=== PATIENT | female | born 1995 | race Caucasian/White ===

== ENCOUNTER 2020-03-12 14:22 | Outpatient (RCR) | payer OTHER, SELFPAY ==
--- NOTE | ~2020-03-12 | US_ITS ---
EXAMINATION: US OB limited w BPP DATE: 03/12/2020 15:31 INDICATION: Biophysical profile and cervical length assessment during third trimester TECHNIQUE: Real-time pelvic ultrasound was performed. The interpreting radiologist was not present fo r the study. COMPARISON: None. FINDINGS: There is a single living fetus in vertex presentation. The placenta is anterior. heart rate is 143 beats per minute (bpm). The cervical length is 3.4 cm. Biophysical profile performed by the technologist: breathing (30 sec sustained breathing in 30 minutes): 2 out of 2 movement (3 gross body movements in 30 minutes): 2 out of 2 tone (one episode of aocpbzt-gmpizizud-fgpsewm limb movement): 2 out of 2 Amniotic fluid pocket (2 cm): 2 out of 2 Total score: 8 out of 8 IMPRESSION: 1. Single living fetus in vertex presentation. 2. Biophysical profile 8 out of 8. 3. Cervical length of 3.4 cm. Reviewed, dictated and finalized at location A. D TECHNICIAN SUPERVISOR
[2020-03-12 15:11] LABS: Add Urine Microscopic? NO; Appearance Urine Clear (Clear); Bilirubin Urine Negative (Negative); Blood Urine Negative (Negative); Color Urine Colorless (Yellow); Glucose Urine UA Negative (Negative); Ketones Urine Negative (Negative); Leukocyte Esterase Ur Negative LEU/UL (Negative); Nitrate Urine Negative (Negative); Protein Urine Negative (Negative); Specific Grav Ur 1.005 (1.001-1.035); Urobilinogen Urine Negative mg/dL (<2.0)
[2020-03-12 15:47] VITALS: BP 109/64; PULSE 99
== END 2020-05-27 07:58 | disposition home or self-care (01) ==
LOC: ANHOBOP 14:22
PROVIDERS: Visit Provider Obstetrics & Gynecology
DX: O99.891 Other specified diseases and conditions complicating pregnancy (principal); Z3A.29 29 weeks gestation of pregnancy
CPT/HCPCS: 59025; 76815; 76819; 81003

== ENCOUNTER 2020-03-26 14:46 | Observation (INO) | payer OTHER, SELFPAY ==
--- NOTE | ~2020-03-26 | US_ITS ---
EXAMINATION: US OB BPP wo non-stress EXAM DATE: 03/26/2020 16:31 INDICATION: bpp hx labor. 3rd trimester. TECHNIQUE: Pelvic obstetrical transabdominal sonogram was performed by a technologist. There are mu ltiple grayscale and Doppler images available for interpretation. Comparison is made to prior examina tion from 03/12/2020. FINDINGS: There is a single fetus identified in vertex presentation with a heart rate of 159 beats pe r minute. The placenta is located in the anterior position. There is no sonographic evidence of retr oplacental hemorrhage identified. There is subjectively expected amount of amniotic fluid. BIOPHYSICAL PROFILE (performed by the technologist) breathing (30 sec sustained breathing in 30 minutes): 2 out of 2 movement (3 gross body movements in 30 minutes): 2 out of 2 tone (one episode of kehmumv-ysrelcfhp-hvevqxe limb movement): 2 out of 2 Amniotic fluid pocket (2 cm): 2 out of 2 Total score: 8 out of 8 IMPRESSION: 1. Single fetus with heart rate of 159 bpm. 2. Normal biophysical profile score of 8 out of 8. Reviewed, dictated and finalized at location B. C PROFESSOR
--- NOTE | 2020-03-26 14:46 | OBADM ---
This patient, Kavitha Bermeo, admitted to the OB room OB Post 116 for observation. Patient/family oriented to hospital policies and general routines including ID bracelet, bed and alarms, visiting hours, pain management, procedures, bathroom and other care routines, personal items, smoking policy, room service/diet, and visiting hours. Patient/Family are encouraged to report perceived risks to care and to ask questions if they do not understand what they are told or what they should do.
[2020-03-26 15:08] VITALS: BP 110/65; PULSE 107
[2020-03-26 15:15] VITALS: BP 105/55; PULSE 111
[2020-03-26 15:19] VITALS: BMI 30.2
[2020-03-26 15:30] VITALS: BP 104/61; PULSE 113
[2020-03-26] MEDS: BETAMETHASONE SOD PHOS/ACETATE 30 MG/5 ML VIAL 12 MG IM (15:35)
[2020-03-26 15:43] VITALS: BP 104/61; PULSE 107
[2020-03-26 15:45] VITALS: BP 103/53; PULSE 103
[2020-03-26 15:50] LABS: Add Urine Microscopic? YES; Appearance Urine Clear (Clear); Bacteria Urine Trace /hpf; Bilirubin Urine Negative (Negative); Blood Urine Negative (Negative); Color Urine Yellow (Yellow); Glucose Urine UA 2+ mg/dL (Negative); Ketones Urine Trace mg/dL (Negative); Leukocyte Esterase Ur 1+ LEU/UL (Negative); Mucus Urine Rare /lpf; Nitrate Urine Negative (Negative); Protein Urine 1+ mg/dL (Negative); RBC Urine 0-2 /hpf (0-2); Specific Grav Ur 1.023 (1.001-1.035); Squamous Epithelial Cell Urine Many /hpf (Few); Urobilinogen Urine Negative mg/dL (<2.0)
--- NOTE | 2020-03-26 15:55 | PC.NURSE ---
Patient taken via wheelchair to ultrasound
--- NOTE | 2020-03-26 16:34 | PC.NURSE ---
Updated Dr. León with lab results, maternal and assessments and ultrasound report. Discharge orders received.
--- NOTE | 2020-04-02 08:16 | PM.OBTRLD ---
OB - Triage/Final Diagnosis Evaluation Laboratory results: Laboratory Tests 03/26/20 15:33 Urine Color Yellow Urine Appearance Clear Urine pH 6.0 Ur Specific [place] 1.023 Urine Protein 1+ H Urine Glucose (UA) 2+ H Urine Ketones Trace Ur Blood (Man) Negative Urine Nitrate Negative Urine Bilirubin Negative Urine Urobilinogen Negative Leukocyte Esterase Rfl 1+ H Urine RBC 0-2 Urine WBC 7-9 H Ur Squamous Epith Cells Many H Urine Bacteria Trace Urine Mucus Rare Final Diagnosis (1) contractions: Code(s): O47.9 - False labor, unspecified Status: Acute
== END 2020-03-26 16:51 | disposition home or self-care (01) ==
PROVIDERS: Admitting Provider Obstetrics & Gynecology; Visit Provider Obstetrics & Gynecology
DX: O47.03 False labor before 37 completed weeks of gestation, third trimester (principal); Z3A.31 31 weeks gestation of pregnancy
CPT/HCPCS: 59025; 76819; 81001; 87086; 87088; 96372; G0378; G0379; J0702

== ENCOUNTER 2020-03-27 15:16 | Outpatient (CLI) | payer OTHER, SELFPAY ==
[2020-03-27] MEDS: BETAMETHASONE SOD PHOS/ACETATE 30 MG/5 ML VIAL 12 MG IM (15:46)
== END 2020-03-27 15:17 | disposition home or self-care (01) ==
LOC: ANHOBOP 15:22
PROVIDERS: Visit Provider Obstetrics & Gynecology
DX: O20.0 Threatened abortion (principal); Z3A.00 Weeks of gestation of pregnancy not specified
CPT/HCPCS: 96372; J0702

== ENCOUNTER 2020-03-28 15:29 | Observation (INO) | payer OTHER, SELFPAY ==
[2020-03-28] VITALS (21 sets, daily range): BP systolic 101–111; BP diastolic 51–70; PULSE 89–123; RESP 18; TEMP 36.3–36.4; O2SAT 99–100; BMI 29.4
--- NOTE | ~2020-03-28 | US_ITS ---
EXAMINATION: US OB limited DATE: 03/28/2020 17:06 INDICATION: Abdominal cramping during third trimester of . Assess cervical length. TECHNIQUE: Real-time ultrasound of the pelvis was performed using both transabdominal and transvagina l probe. The interpreting radiologist was not present for the study. COMPARISON: None. FINDINGS: There is a single living fetus in vertex presentation. The placenta is anterior and not low-lying wi th caudal margin 11 cm from the internal cervical os. Cervical length measures 3.1 cm which remains w ithin normal limits with no funneling. heart rate is 145 beats per minute (bpm). IMPRESSION: 1. Single living fetus in vertex presentation with heart rate of 145 bpm. 2. Normal cervical length of 3.1 cm. Reviewed, dictated and finalized at location A. A DIVE TRAINING INSTRUCTOR IMPRESSION: 1. Single living fetus in vertex presentation with heart rate of 145 bpm . 2. Normal cervical length of 3.1 cm.
--- NOTE | 2020-03-28 15:29 | OBADM ---
This patient, Kavitha Bermeo, admitted to the OB room OB Post 112 for observation. Patient/family oriented to hospital policies and general routines including ID bracelet, bed and alarms, visiting hours, pain management, procedures, bathroom and other care routines, personal items, smoking policy, room service/diet, and visiting hours. Patient/Family are encouraged to report perceived risks to care and to ask questions if they do not understand what they are told or what they should do.
--- NOTE | 2020-03-28 16:45 | PC.NURSE ---
Dr. León called and notified regarding pt's arrival and c/o of vaginal spotting, vaginal pressure, and abdominal cramping. Assessment findings and FHR tracing reviewed with Dr. Chavez received.
[2020-03-28] MEDS: NIFEdipine 10 MG CAPSULE PO (17:10)
--- NOTE | 2020-03-28 18:02 | PC.NURSE ---
Dr. León notified regarding ultrasound report and patient continuing to have abdominal cramping following Procardia. Orders received.
[2020-03-28] MEDS: TERBUTALINE SULFATE 1 MG/ML VIAL 0.25 MG SUB-Q (18:27)
--- NOTE | 2020-04-02 08:18 | PM.OBTRLD ---
OB - Triage/Final Diagnosis Final Diagnosis (1) contractions: Code(s): O47.9 - False labor, unspecified Status: Acute
== END 2020-03-28 20:14 | disposition home or self-care (01) ==
PROVIDERS: Admitting Provider Obstetrics & Gynecology; Visit Provider Obstetrics & Gynecology
DX: O47.03 False labor before 37 completed weeks of gestation, third trimester (principal); Z3A.31 31 weeks gestation of pregnancy
CPT/HCPCS: 76815; 96372; A9270; G0378; G0379; J3105

== ENCOUNTER 2020-05-01 13:38 | Observation (INO) | payer OTHER, SELFPAY ==
--- NOTE | ~2020-05-01 | US_ITS ---
EXAMINATION: US OB BPP wo non-stress DATE: 05/01/2020 16:28 INDICATION: Abdominal tenderness. Assess biophysical profile. Third trimester . TECHNIQUE: Real-time pelvic ultrasound was performed. The interpreting radiologist was not present fo r the study. COMPARISON: 03/28/2020 FINDINGS: There is a single living fetus in vertex presentation. The placenta is anterior. heart rate is 125 beats per minute (bpm). Biophysical profile performed by the technologist: breathing (30 sec sustained breathing in 30 minutes): 2 out of 2 movement (3 gross body movements in 30 minutes): 2 out of 2 tone (one episode of wmnlski-ogkcxiguk-hvfsuvg limb movement): 2 out of 2 Amniotic fluid pocket (2 cm): 2 out of 2 Total score: 8 out of 8 IMPRESSION: 1. Single living fetus in vertex presentation with heart rate of 125 bpm. 2. Biophysical profile 8 out of 8. Reviewed, dictated and finalized at location A. UAL OFFICE ASSISTANT
[2020-05-01 13:55] VITALS: BMI 31.7
[2020-05-01 15:01] VITALS: BP 106/65; PULSE 102
[2020-05-01 15:16] VITALS: BP 111/67; PULSE 99
[2020-05-01 15:41] LABS: Basophils Percent Auto 0.2 % (0.2-1.2); Eosinophils Percent Auto 0.4 % (0-4.4); Hemoglobin 10.3 g/dL (12.0-15.0); Immature Granulocyte Absolute 0.04 K/mm3 (0.00-0.031); Immature Granulocyte Percent A 0.4 % (0-0.5); Lymphocytes Absolute Auto 1.46 K/mm3 (0.9-3.2); Lymphocytes Percent Auto 14.4 % (18.3-44.2); Mean Corpuscular HGB Conc 32.2 g/dl (32-36); Mean Corpuscular Hemoglobin 29.3 pg (26-34); Mean Corpuscular Volume 91.2 fl (80-100); Mean Platelet Volume 10.4 fl (7.4-10.4); Monocytes Absolute Auto 0.6 K/mm3 (0.1-0.6); Monocytes Percent Auto 5.6 % (2.6-8.5); Platelet Count Result 187 k/mm3 (150-375); Red Blood Count 3.51 M/mm3 (4.2-5.4); Red Cell Distribution Width 14.6 % (11.5-14.5); White Blood Count 10.2 K/mm3 (4.5-10.0)
--- NOTE | 2020-05-01 16:48 | P.PNOB_ITS ---
OB - Triage/Final Diagnosis Visit Information Comments/Additional reasons for admission: I have assessed the risk for this patient, Kavitha Bermeo, and determined that she would benefit from observation care. Evaluation Laboratory results: Laboratory Tests 05/01/20 15:35 WBC 10.2 H RBC 3.51 L Hgb 10.3 L Hct 32.0 L MCV 91.2 MCH 29.3 MCHC 32.2 RDW 14.6 H Plt Count 187 MPV 10.4 Immature Gran % (Auto) 0.4 Neut % (Auto) 79.0 H Lymph % (Auto) 14.4 L [place] % (Auto) 5.6 Eos % (Auto) 0.4 Baso % (Auto) 0.2 Lymph # (Auto) 1.46 [place] # (Auto) 0.6 Eos # (Auto) 0.0 Baso # (Auto) 0.0 Abs Immat Gran (auto) 0.04 H Absolute Neuts (auto) 8.0 H Absolute Nucleated RBC 0.0 Nucleated RBC % 0.0 Vital signs: Vital Signs - 24 hr 05/01/20 15:01 05/01/20 15:16 Pulse Rate 102 H 99 Blood Pressure 106/65 111/67 Final Diagnosis (1) False labor: Code(s): O47.9 - False labor, unspecified Status: Acute
== END 2020-05-01 16:40 | disposition home or self-care (01) ==
PROVIDERS: Admitting Provider Obstetrics & Gynecology; Visit Provider Obstetrics & Gynecology
DX: O47.9 False labor, unspecified (principal); Z3A.00 Weeks of gestation of pregnancy not specified
CPT/HCPCS: 36415; 76819; 84112; 85025; G0378; G0379

== ENCOUNTER 2020-05-05 19:09 | Observation (INO) | payer OTHER, SELFPAY ==
[2020-05-05 19:15] VITALS: BMI 31.7
--- NOTE | 2020-05-05 23:43 | OBADM ---
This patient, Kavitha Bermeo, admitted to the OB room Labor/Delivery/Recovery 106 for observation. Patient/family oriented to hospital policies and general routines including ID bracelet, bed and alarms, visiting hours, pain management, procedures, bathroom and other care routines, personal items, smoking policy, room service/diet, and visiting hours. Patient/Family are encouraged to report perceived risks to care and to ask questions if they do not understand what they are told or what they should do.
--- NOTE | 2020-05-08 17:55 | PM.OBTRLD ---
OB - Triage/Final Diagnosis Visit Information Comments/Additional reasons for admission: I have assessed the risk for this patient, Kavitha Bermeo, and determined that she would benefit from observation care. Final Diagnosis (1) contractions: Code(s): O47.9 - False labor, unspecified Status: Acute
== END 2020-05-05 23:52 | disposition home or self-care (01) ==
PROVIDERS: Admitting Provider Obstetrics & Gynecology; Visit Provider Obstetrics & Gynecology
DX: O47.03 False labor before 37 completed weeks of gestation, third trimester (principal); Z3A.36 36 weeks gestation of pregnancy
CPT/HCPCS: G0378; G0379

== ENCOUNTER 2020-05-08 13:05 | Inpatient (IN) | payer OTHER, SELFPAY ==
[2020-05-08] VITALS (99 sets, daily range): BP systolic 87–119; BP diastolic 47–87; PULSE 76–137; RESP 18; TEMP 36.3–37; O2SAT 99–100
[2020-05-08 13:49] LABS: Basophils Percent Auto 0.1 % (0.2-1.2); Eosinophils Percent Auto 0.1 % (0-4.4); Hematocrit 34.2 % (37.0-47.0); Immature Granulocyte Absolute 0.05 K/mm3 (0.00-0.031); Immature Granulocyte Percent A 0.5 % (0-0.5); Lymphocytes Absolute Auto 1.21 K/mm3 (0.9-3.2); Mean Corpuscular HGB Conc 32.2 g/dl (32-36); Mean Corpuscular Hemoglobin 29.1 pg (26-34); Mean Corpuscular Volume 90.5 fl (80-100); Mean Platelet Volume 10.8 fl (7.4-10.4); Monocytes Absolute Auto 0.4 K/mm3 (0.1-0.6); Monocytes Percent Auto 3.4 % (2.6-8.5); Neutrophils Absolute Auto 9.4 K/mm3 (1.3-6.7); Neutrophils Percent Auto 84.9 % (45.5-73.1); Platelet Count Result 197 k/mm3 (150-375); Red Blood Count 3.78 M/mm3 (4.2-5.4); Red Cell Distribution Width 14.9 % (11.5-14.5)
[2020-05-08] MEDS: LACTATED RINGERS 1,000 ML 125 ML IV CONT ×3 (13:51→16:12)
--- NOTE | 2020-05-08 13:55 | LDADM ---
This patient, Kavitha Bermeo, was admitted to Labor/Delivery/Recovery 104 on 05/08/20 at 13:05. Plans for labor, pain management and were discussed with patient. Patient/family oriented to hospital policies and general routines including ID bracelet, bed and alarms, visiting hours, pain management, procedures, bathroom and other care routines, personal items, smoking policy, room service/diet and guest tray routines, security routines, and visiting hours. Patient/Family are encouraged to report perceived risks to care and to ask questions if they do not understand what they are told or what they should do. See OBIX for further documentation.
--- NOTE | 2020-05-08 14:59 | WPDANESEPPF ---
Anes - Initial Pre Proc Eval Procedure: labor epidural Date/Time: 05/08/20 14:59 Surgeon: Stacey León MD Pre Op Diagnosis: labor pain Pre Op Diagnosis: Induction of Labor Patient Data Age: 24 Gender: F Height: Weight: Last Vital Signs Pulse 104 H 05/08/20 14:58 BP 95/62 L 05/08/20 14:58 Pulse Ox 100 05/08/20 14:54 Allergies Allergy/AdvReac Type Severity Reaction Status Date / Time pecan nut Allergy Difficulty Verified 03/28/20 17:55 Breathing Penicillins Allergy Dyspnea / Verified 03/28/20 16:26 SOB vancomycin Allergy Itching Verified 03/28/20 16:26 Home Medications Medication Instructions Recorded Confirmed Type No Home Medications 05/08/20 05/08/20 History Laboratory Tests 05/08/20 05/08/20 13:39 13:39 WBC 11.0 K/mm3 H K/mm3 (4.5-10.0) RBC 3.78 M/mm3 L M/mm3 (4.2-5.4) Hgb 11.0 g/dL L g/dL (12.0-15.0) Hct 34.2 % L % (37.0-47.0) MCV 90.5 fl fl (80-100) MCH 29.1 pg pg (26-34) MCHC 32.2 g/dl g/dl (32-36) RDW 14.9 % H % (11.5-14.5) Plt Count 197 k/mm3 k/mm3 (150-375) MPV 10.8 fl H fl (7.4-10.4) Immature Gran % (Auto) 0.5 % % (0-0.5) Neut % (Auto) 84.9 % H % (45.5-73.1) Lymph % (Auto) 11.0 % L % (18.3-44.2) [place] % (Auto) 3.4 % % (2.6-8.5) Eos % (Auto) 0.1 % % (0-4.4) Baso % (Auto) 0.1 % L % (0.2-1.2) Lymph # (Auto) 1.21 K/mm3 K/mm3 (0.9-3.2) [place] # (Auto) 0.4 K/mm3 K/mm3 (0.1-0.6) Eos # (Auto) 0.0 K/mm3 K/mm3 (0-0.3) Baso # (Auto) 0.0 K/mm3 K/mm3 (0.0-0.1) Abs Immat Gran (auto) 0.05 K/mm3 H K/mm3 (0.00-0.031) Absolute Neuts (auto) 9.4 K/mm3 H K/mm3 (1.3-6.7) Absolute Nucleated RBC 0.0 K/mm3 K/mm3 (0.0-0.012) Nucleated RBC % 0.0 % % (0.0-0.2) RPR Pending Patient hx anesthesia problems: none Family hx anesthesia problems: none PMFSH Past Medical History Medical History (Updated 05/08/20 @ 14:59 by Agapito Ocampo DO) Asthma Family History Family History (Updated 04/29/20 @ 14:11 by Lul Capellan RN) Father Bone cancer Skin cancer (melanoma) Heart murmur Mother Multiple sclerosis Diabetes mellitus Social History Social History Smoking status: Former smoker Substance use: never Spiritual care concerns: No Anes - Eval Final PreProcedure Day of Procedure 05/08/20 14:59 Patient weight: obese ASA classification: III Anesthesia type and monitoring: regional epidural Informed Consent: The patient's anesthetic plan and its attendant risks and benefits were discussed with the patient/family/POA. Questions were solicited and answers provided to the satisfaction of the patient/family/POA.
[2020-05-08] MEDS: OXYTOCIN 30 UNITS/NS 500 ML 30 UNITS/500 ML BAG IV CONT (16:15)
--- NOTE | 2020-05-08 17:22 | PM.IMHP ---
H&P: HPI History of Present Illness Date/Time: 05/08/20 17:22 Chief Complaint: labor Narrative: Kavitha Bermeo is a 24yo @ 37.2wks (CORTNEY 05/27/20) who presented to clinic with complaints of contractions and passage of mucus and blood. Good movement. She was found to be 6cm in clinic. She was sent to L&D for labor. She is now s/p epidural and comfortable; she has been started on pitocin augmentation. She has had regular care. Her has been complicated by: - H/o PTD; normal cervical length - H/o contractions s/p ANCS - Request for sterilization, consent signed 04/01/20 - Anemia on iron - CMV non-immune Review of Systems Constitutional: Constitutional: Denies chills and Denies fever(s) Eyes: Eyes: Denies change in vision Cardiovascular: Cardiovascular: Denies chest pain and Denies rapid heart rate Respiratory: Respiratory: Denies cough and Denies dyspnea Gastrointestinal: Gastrointestinal: Reports nausea and Denies vomiting Genitourinary: Comments: see HPI Neurologic: Denies headache(s) Psychiatric: Psychiatric: Denies depression [facility], [facility] Past Medical History Medical History Asthma Family History Family History Father Bone cancer Skin cancer (melanoma) Heart murmur Mother Multiple sclerosis Diabetes mellitus Social History Social History Smoking status: Former smoker Substance use: never Spiritual care concerns: No Meds Home Medications and Allergies Home Medications Medication Instructions Recorded Confirmed Type No Home Medications 05/08/20 05/08/20 History Allergies Allergy/AdvReac Type Severity Reaction Status Date / Time pecan nut Allergy Difficulty Verified 03/28/20 17:55 Breathing Penicillins Allergy Dyspnea / Verified 03/28/20 16:26 SOB vancomycin Allergy Itching Verified 03/28/20 16:26 Vital Signs Vital Signs - 24 hr 05/08/20 13:27 05/08/20 13:31 05/08/20 13:46 Temperature Pulse Rate 123 H 137 H 119 H Blood Pressure 109/69 107/68 99/60 L Pulse Oximetry 05/08/20 14:01 05/08/20 14:16 05/08/20 14:31 Temperature Pulse Rate 117 H 107 H 112 H Blood Pressure 109/74 111/64 110/67 Pulse Oximetry 05/08/20 14:39 05/08/20 14:44 05/08/20 14:46 Temperature Pulse Rate 112 H 105 H Blood Pressure 104/65 98/60 L Pulse Oximetry 99 100 05/08/20 14:49 05/08/20 14:52 05/08/20 14:54 Temperature Pulse Rate 101 H 110 H Blood Pressure 110/69 97/66 L Pulse Oximetry 100 100 05/08/20 14:55 05/08/20 14:58 05/08/20 14:59 Temperature Pulse Rate 120 H 104 H Blood Pressure 87/47 L 95/62 L Pulse Oximetry 99 05/08/20 15:00 05/08/20 15:01 05/08/20 15:04 Temperature 36.3 C L Pulse Rate 95 97 Blood Pressure 106/64 102/62 Pulse Oximetry 100 05/08/20 15:07 05/08/20 15:09 05/08/20 15:10 Temperature Pulse Rate 97 99 Blood Pressure 106/61 103/60 Pulse Oximetry 99 05/08/20 15:13 05/08/20 15:14 05/08/20 15:16 Temperature Pulse Rate 101 H 100 Blood Pressure 104/60 101/60 Pulse Oximetry 100 05/08/20 15:19 05/08/20 15:22 05/08/20 15:24 Temperature Pulse Rate 97 98 Blood Pressure 105/60 102/60 Pulse Oximetry 100 100 05/08/20 15:25 05/08/20 15:28 05/08/20 15:29 Temperature Pulse Rate 99 103 H Blood Pressure 102/59 L 105/61 Pulse Oximetry 100 05/08/20 15:31 05/08/20 15:34 05/08/20 15:39 Temperature Pulse Rate 87 91 Blood Pressure 104/62 104/65 Pulse Oximetry 100 100 05/08/20 15:44 05/08/20 15:46 05/08/20 15:49 Temperature Pulse Rate 84 Blood Pressure 103/61 Pulse Oximetry 100 100 05/08/20 15:54 05/08/20 15:59 05/08/20 16:01 Temperature Pulse Rate 105 H Blood Pressure 106/63 Pulse Oximetry 100 100 05/08/20 16:04 05/08/20 16
--- NOTE | 2020-05-08 17:41 | WPDHPUPDATE1 ---
History and Physical Update Update Date/Time: 05/08/20 17:41 History and Physical has been reviewed, including an updated exam of the patient. There are NO changes in the patient's condition. Risks, benefits, and alternatives have been discussed and questions answered. Patient agrees to proceed with procedure.
--- NOTE | 2020-05-08 19:28 | PM.OBPRVD ---
OB - Delivery Note Procedure Delivery date: 05/08/20 events: Labor Augmentation Intrapartal events: None Delivery augmentation: rupture of membranes and pitocin Delivery monitor: external FHT and external uterine Route of delivery: Laceration Description: None Quantitative Blood Loss (ml): 100 Anesthesia type: Epidural Disposition: floor Narrative: Patient rapidly progressed to complete dilation with strong desire to push. With good maternal effort and after 2 contractions, she delivered the head over intact perineum. No nuchal cord was palpated. The shoulders and body delivered without complications. The had spontaneous cry and was immediately placed skin to skin. Delayed cord clamping was performed. The umbilical cord was then clamped and cut. A segment of the cord was collected for cord gases, and the remaining cord blood was collected for typing. With Pitocin running and gentle downward traction on the umbilical cord, the placenta delivered without complications. The cervix, vagina, perineum were examined and no lacerations were noted. Bimanual massage was performed and good fundal tone and minimal bleeding noted. Sponge, lap, instrument counts were correct at the end of the procedure. Mom and baby were left bonding in a stable condition in the birthing suite. Baby Date of : 05/08/20 Time of : 19:16 Weeks of gestation at delivery: 37 gender: Female Weight (pounds): 7 Weight (ounces): 3 presentation: vertex position: Left Occiput Anterior Placenta delivery description: Expressed cord vessel description: 3 Vessels score one minute: 9 score five minutes: 9
[2020-05-08] MEDS: OXYTOCIN 30 UNITS/NS 500 ML 30 UNITS/500 ML BAG 125 UNITS IV CONT (19:50)
[2020-05-08] MEDS: IBUPROFEN 600 MG TABLET PO (20:43)
[2020-05-08] MEDS: WITCH HAZEL 40 PADS 1 PAD TOPICAL (20:44)
[2020-05-08] MEDS: DIBUCAINE 1% OINTMENT 30 GM TUBE 1 APPLIC TOPICAL (20:44)
--- NOTE | 2020-05-08 21:56 | OBPPTRN ---
Patient transferred to post room #281 via wheelchair. Oriented to unit, room, information board, rooming in, admission packet and security measures. Patient verbalizes understanding.
[2020-05-08] MEDS: ACETAMINOPHEN 325 MG TABLET 650 MG PO (22:53)
[2020-05-09] VITALS (7 sets, daily range): BP systolic 103–119; BP diastolic 68–79; PULSE 76–88; RESP 16–18; TEMP 36.3–36.9; O2SAT 97–100
[2020-05-09] MEDS: IBUPROFEN 600 MG TABLET PO ×3 (05:02→19:12)
[2020-05-09 05:04] LABS: Hematocrit 31.2 % (37.0-47.0); Hemoglobin 9.9 g/dL (12.0-15.0)
[2020-05-09] MEDS: POLYSACCHARIDE IRON COMPLEX 150 MG CAPSULE PO ×2 (08:54→19:11)
[2020-05-09] MEDS: DOCUSATE SODIUM 100 MG CAPSULE PO ×2 (08:54→19:11)
[2020-05-09] MEDS: ACETAMINOPHEN 325 MG TABLET 650 MG PO ×2 (08:54→23:11)
--- NOTE | 2020-05-09 10:46 | WPDANLDPN2 ---
Anes-Prog Note L&D Date/Time: 05/09/20 10:46 Comfortable throughout: labor and delivery Neuraxial method: epidural Epidural/Spinal procedure site: clean & non-tender Neuro status: Neuro function grossly intact. Cardiovascular status: normal Respiratory status: normal Airway patency: baseline Mental status: baseline Post-Op hydration status: normal Vital Signs: Last Vital Signs Temp 97.9 F 05/09/20 08:20 Pulse 88 05/09/20 08:20 Resp 18 05/09/20 08:20 BP 103/70 05/09/20 08:20 Pulse Ox 97 05/09/20 08:20 Pain score (VAS): no pain verbalized I/O: Intake & Output 05/08/20 05/09/20 05/09/20 23:59 07:59 15:59 Intake Total 2700 Output Total 108 Balance 2592 Post-procedural complaints: none Patient feedback: Patient satisfied with anesthetic care.
[2020-05-09 12:55] LABS: Rapid Plasma Reagin Non-Reactive (NonReactive)
--- NOTE | 2020-05-09 14:06 | PM.OBPNVD ---
OB - PN: Subj Subjective Date/time seen: 05/09/20 14:06 PPD#1 Kavitha reports doing well today. She is having cramping pain but the PO meds are helping. She reports her bleeding is light. She has tolerated regular diet w/o issue. She has voided and passed gas. She is ambulating w/o symptoms of anemia. She is bottle feeding. No CP, SOB, fever, chills, headaches, vision changes, N/V, dizziness or palpitations. OB - PN: Obj Data Labs CBC & Chem 7: 05/09/20 04:51 Labs: Laboratory Results - last 24 hr 05/08/20 05/08/20 05/09/20 13:39 13:39 04:51 Hgb 9.9 L Hct 31.2 L RPR Non-reactive Blood Type B Positive Antibody Screen Negative OB - PN A/P Assessment and Plan (1) Status post vaginal delivery: Status: Acute (2) Anemia affecting sixth : Code(s): O99.019 - Anemia complicating , unspecified trimester; O09.40 - Supervision of with grand multiparity, unspecified trimester Status: Acute Plan day: 1 Plan: routine care and discharge home (tomorrow) Comments: f/u in 4 wks; BTL will be scheduled then ER return precautions: fever, pain/N/v, signs of HTN, bleeding pelvic rest for 6 wk Time Spent With Patient Time: Total time spent is greater than 50% in coordination of care (as documented) at patient's floor/unit and/or counseling patient: Review of Systems Review of Systems: All systems reviewed & are unremarkable except as noted in HPI and below (HPI) Exam Const: General: cooperative, healthy appearing, comfortable and no acute distress Resp: Effort & Inspection: normal respiratory effort and able to speak in complete sentences Auscultation: clear to auscultation bilaterally Cardio: Rate: regular rate GI: Inspection: normal to inspection and non-distended GI Palp: No abdominal tenderness and Yes Soft to palpation Auscultation: normal bowel sounds : Other: fundus firm below umbilicus Skin: General skin exam: normal color Neuro: General: patient oriented x3 Extrem: General: normal to inspection Psych: Appearance: grossly normal Affect: normal affect Attitude: cooperative
--- NOTE | 2020-05-09 19:12 | PC.NURSE ---
Patient viewed the discharge video Mother & Baby Care, The First Two Weeks via online. Patient was given the opportunity and encouraged to ask questions. Patient verbalized understanding of information shared and has been given the mother/baby guide for home reference.
[2020-05-10] MEDS: IBUPROFEN 600 MG TABLET PO (07:55)
[2020-05-10] MEDS: DOCUSATE SODIUM 100 MG CAPSULE PO (07:56)
[2020-05-10] MEDS: POLYSACCHARIDE IRON COMPLEX 150 MG CAPSULE PO (07:56)
[2020-05-10 08:00] VITALS: BP 111/79; PULSE 71; RESP 14; TEMP 36.3; O2SAT 99
[2020-05-12 12:06] VITALS: BP 108/63; PULSE 113
--- NOTE | 2020-05-20 12:41 | PM.OBDSVD ---
DS: Admitting Diagnosis Admitting Diagnosis Admitting Diagnosis: labor DS: Discharge Diagnosis Discharge Diagnosis (1) Anemia affecting sixth : Code(s): O99.019 - Anemia complicating , unspecified trimester; O09.40 - Supervision of with grand multiparity, unspecified trimester Status: Acute (2) Status post vaginal delivery: Status: Acute OB - DS: Summary OB Procedures : Ultrasound and PTL Mgmt OB Procedures Intrapartum: Spontaneous Vag Delivery OB Procedures: : None Peripartum Data Delivery Method: Natural Vaginal Laceration Description: None complications: none [place] 1: Gender: Female Disposition of : home Status at Discharge Functional status at discharge: independent ambulation Overall status at discharge: patient is back to baseline Time Spent with Patient Time attestation: Total time spent providing and/or coordinating discharge services: Time spent: Less than 30 minutes Exam Const: General: cooperative, healthy appearing, comfortable and no acute distress Resp: Effort & Inspection: normal respiratory effort and able to speak in complete sentences Auscultation: clear to auscultation bilaterally Cardio: Rate: regular rate GI: Inspection: normal to inspection and non-distended GI Palp: No abdominal tenderness and Yes Soft to palpation Auscultation: normal bowel sounds : Other: fundus firm below umbilicus Skin: General skin exam: normal color Neuro: General: patient oriented x3 Extrem: General: normal to inspection Psych: Appearance: grossly normal Affect: normal affect Attitude: cooperative Discharge Plan Discharge Attending physician on discharge: Stacey León Consulting providers: Agapito Ocampo Discharging Clinician: Stacey León Anticipated Discharge Date/Time: 05/10/20 08:00 Patient Disposition: Home, Self-Care Activity: pelvic rest Diet: regular Discharge Instructions: Education: Mom and Baby Guide Given to: Mother Follow-Up: Call your delivering provider's office for an appointment to be seen in: 4 Weeks Mom and baby should come to the [facility] for the follow-up appointment. Appointment Date/Time: May 12, 2020 at 10:00 am What to expect at your follow-up visit: Blood Pressure Check Physical Assessment Call [phone] if you are unable to keep your appointment time. BREAST CARE: * Wear a snug supportive bra. * For engorgement discomfort: Bottle Feeding: * May apply ice packs PERINEAL CARE: * Until bleeding stops, use your celso bottle after urinating * Change your pad frequently throughout the day * You may take sitz baths several times a day (fill your bathtub with warm water and soak for 20 minutes.) Do NOT bathe in the water * No tub baths until seen by your physician - You may shower ACTIVITY: * Rest as much as possible. * Do not exercise or lift anything heavier than your baby (such as laundry or other children.)for about 2 weeks * Avoid stairs or driving as much as possible for about 2 weeks. * Do not put anything into the vagina. No douching, tampons, or sexual activity until seen by physician. NOTIFY PHYSICIAN IF YOU HAVE ANY QUESTIONS OR IF ANY OF THE FOLLOWING SYMPTOMS OCCUR: * If your vaginal area becomes red, swollen, or more painful than what you have experienced in the hospital. * If your vaginal bleeding becomes foul smelling. * If your vaginal bleeding becomes more heavy than a period or if your bleeding changes from pink to bright red. However, you may pass an occasional walnut-sized clot once or twice for the first week . * If you experience a sharp, shooting pain in your calves. * If you discover a hard, reddened area on your breast or if you experience flu-like symptoms. DIET: * Eat regular, well-balanced meals. * Drink plenty of fluids daily
== END 2020-05-10 12:00 | disposition home or self-care (01) | DRG 560 ==
LOC: ANHLDR 13:10 → ANHOB2 21:59
PROVIDERS: Admitting Provider Obstetrics & Gynecology; Visit Provider Obstetrics & Gynecology
DX: O99.02 Anemia complicating childbirth (principal); D64.9 Anemia, unspecified; Z37.0 Single live birth; Z3A.37 37 weeks gestation of pregnancy
CPT/HCPCS: 36415; 85014; 85018; 85025; 86592; 86850; 86900; 86901; A9270; J2590; J2795; J7120

== ENCOUNTER 2021-08-12 16:21 | Observation (INO) | payer OTHER, SELFPAY ==
[2021-08-12] VITALS (28 sets, daily range): BP systolic 96–125; BP diastolic 55–82; PULSE 55–125; RESP 13–24; TEMP 36.3–36.7; O2SAT 93–100; BMI 27.1
--- NOTE | ~2021-08-12 | US_ITS ---
EXAMINATION: US OB <=14 wk fetus w TV DATE: 08/12/2021 17:13 INDICATION: Left-sided abdominal pain, history of tubal ligation with positive beta hCG TECHNIQUE: Real-time pelvic transabdominal and transvaginal ultrasound was performed. COMPARISON: None. FINDINGS: The uterus measures 9.4 x 6.2 x 4.9 cm. The endometrial thickness measures 18 mm. No intra uterine gestational sac is identified. The right ovary measures 1.5 x 1.6 x 1.9 cm. The left ovary me asures 2.4 x 2.3 x 2.7 cm. There is an approximately 2.3 x 1.8 cm complex cystic area in the left adn exa. There is a moderate amount of free fluid in the pelvis. IMPRESSION: 1. Complex cystic area of the left adnexa with moderate amount of free fluid in the pelvis. Given his tory of tubal ligation and positive beta hCG, findings are concerning for tubal ectopic . Th woodrow findings were discussed with Dr. Nacho Amezquita DO in the Emergency Department at 1721 hours on 08/12/2021. Reviewed, dictated and finalized at location F. IMPRESSION: 1. Complex cystic area of the left adnexa with moderate amount of free fluid in the pelvis. Given history of tubal ligation and positive beta hCG, findings ar e concerning for tubal ectopic . These findings were discussed with Dr Laura Amezquita DO in the Emergency Department at 1721 hours on 08/12/2021.
--- NOTE | 2021-08-12 16:37 | ED.GENADULT ---
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 Patient states he has been having pain in the left lower quadrant since yesterday the pain is described as cramping in nature and does not radiate. 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 León. The patient has a history of bilateral tubal ligations. She had a positive beta in the emergency department [place] at the end of July and then had an increasing beta drawn yesterday. Concern of having sinus the ER for further evaluation patient denies any fever chills nausea vomiting or any other symptoms Related Data Home Medications Medication Instructions Recorded Confirmed No Home Medications 08/12/21 08/12/21 Allergies Allergy/AdvReac Type Severity Reaction Status Date / Time pecan nut Allergy Difficulty Verified 08/12/21 17:15 Breathing Penicillins Allergy Dyspnea / Verified 08/12/21 17:15 SOB vancomycin Allergy Itching Verified 08/12/21 17:15 Review of Systems Review of Systems: Gen.: Denies fevers or chills ENT: Denies congestion Respiratory: Denies shortness of breath or cough CV: Denies chest pain or palpitations GI: See HPI : Reports positive test Musculoskeletal: Denies back pain or muscle pain Neuro: Denies numbness, tingling, weakness or focal weakness Skin: Denies rash Except as documented, all other systems reviewed and negative PMFSH Past Medical History Medical History Asthma Surgical History Surgical History History of tubal ligation Family History Family History Father Bone cancer Skin cancer (melanoma) Heart murmur Mother Multiple sclerosis Diabetes mellitus Social History Social History Smoking status: Former smoker Alcohol intake: never Substance use: never Substance use type: does not use Gender identity (if verbalized by the patient): Female Sexual Orientation (if Verbalized by the Patient): Bisexual Spiritual care concerns: No Exam Narrative: APPEARANCE: No acute distress, nontoxic, resting in bed HEENT: Normocephalic, atraumatic, OMM RESPIRATORY: No respiratory distress, clear to auscultation bilaterally with no rhonchi wheezing or rales CARDIOVASCULAR: RRR s murmur ABDOMINAL: Soft nondistended tender to palpation in left lower quadrant no tenderness left upper quadrant, right upper quadrant right lower quadrant no rebound or guarding MUSCULOSKELETAl: Moves all extremities. No clubbing, cyanosis or edema. NEURO: Awake and alert. Following commands, speech normal, no focal deficits SKIN:: Warm, dry. Normal Color PSYCHIATRIC: Normal affect/mood Course Course Emergency Course: Discussed with Dr. León presentation work-up we will plan to take patient to the OR at this time Phong with patient need for OR in agreement Vital Signs Vital signs: Vital Signs Pulse Rate 83 08/12/21 16:37 Respiratory Rate 16 08/12/21 16:37 Blood Pressure 122/74 08/12/21 16:37 Pulse Oximetry 100 08/12/21 16:37 Oxygen Delivery Room Air 08/12/21 16:37 Pulse Rate 95 08/12/21 17:30 Respiratory Rate 16 08/12/21 16:37 Blood Pressure 112/63 08/12/21 17:30 Pulse Oximetry 99 08/12/21 17:30 Oxygen Delivery Room Air 08/12/21 16:37 Medical Decision Making Vital Signs Vital Signs: Vital Signs Pulse Rate 83 08/12/21 16:37 Respiratory Rate 16 08/12/21 16:37 Blood Pressure 122/74 08/12/21 16:37 Pulse Oximetry 100 08/12/21 16:37 Oxygen Delivery Room Air 08/12/21 16:37 Pulse Rate 95 08/12/21 17:30 Respiratory Rate 16 08/12/21 16:37 Bl
--- NOTE | 2021-08-12 16:43 | PC.NURSE ---
pt to ultrasound at this time.
[2021-08-12 16:54] LABS: Basophils Percent Auto 0.2 % (0.2-1.2); Eosinophils Absolute Auto 0.1 K/mm3 (0-0.3); Eosinophils Percent Auto 0.6 % (0-4.4); Hematocrit 43.7 % (37.0-47.0); Hemoglobin 14.2 g/dL (12.0-15.0); Immature Granulocyte Absolute 0.04 K/mm3 (0.00-0.031); Immature Granulocyte Percent A 0.4 % (0-0.5); Lymphocytes Absolute Auto 2.28 K/mm3 (0.9-3.2); Lymphocytes Percent Auto 20.9 % (18.3-44.2); Mean Corpuscular HGB Conc 32.5 g/dl (32-36); Mean Corpuscular Hemoglobin 31.6 pg (26-34); Mean Corpuscular Volume 97.3 fl (80-100); Mean Platelet Volume 10.9 fl (7.4-10.4); Monocytes Absolute Auto 0.6 K/mm3 (0.1-0.6); Monocytes Percent Auto 5.4 % (2.6-8.5); Neutrophils Absolute Auto 7.9 K/mm3 (1.3-6.7); Neutrophils Percent Auto 72.5 % (45.5-73.1); Platelet Count Result 274 k/mm3 (150-375); Red Blood Count 4.49 M/mm3 (4.2-5.4); Red Cell Distribution Width 13.9 % (11.5-14.5); White Blood Count 10.9 K/mm3 (4.5-10.0)
[2021-08-12 17:01] LABS: Alanine Aminotransferase 15 U/L (6-35); Albumin Level 4.4 g/dL (3.5-5.1); Alkaline Phosphatase 65 U/L (38-126); Anion Gap 9 mmol/L (8-16); Aspartate Amino Transferase 18 U/L (14-36); Bilirubin,Total 0.3 mg/dL (0.2-1.3); Blood Urea Nitrogen 8 mg/dL (7-17); Calcium 8.9 mg/dL (8.4-10.2); Carbon Dioxide 24 mmol/L (22-30); Chloride 107 mmol/L (98-107); Estimated CRCL calculation 156 ml/min; Estimated Glomerular Filt Rate > 60; Glucose 99 mg/dL (65-110); Potassium 3.6 mmol/L (3.4-5.0); Sodium 140 mmol/L (137-145)
[2021-08-12] MEDS: SODIUM CHLORIDE 0.9% IV 1,000 ML 999 ML IV CONT (17:03)
[2021-08-12] MEDS: ENTER PT WEIGHT XX (17:25)
--- NOTE | 2021-08-12 18:12 | PM.IMHP ---
H&P: HPI History of Present Illness Date/Time: 08/12/21 18:12 Chief Complaint: Kavitha is a 25yo [id number], LMP 07/03/21 who presented to clinic today with + beta. She underwent bilateral laparoscopic partial salpingectomy 06/2020. She reports her cycle was late and took a UPT at home; all 3 were positive. She went to [place] where beta was 294 on 08/07/21; US was negative. She repeated beta (same lab) and it increased to 595 today. She has been having significant LLQ pain/pressure since yesterday. She was immediately sent to the ER after exam revealed guarding and rebound tenderness. US shows left complex mass ~2cm w/ moderate amount of free fluid. Vitals and labs are stable. No symptoms of anemia Review of Systems Review of Systems: All systems reviewed & are unremarkable except as noted in HPI and below (HPI) [facility] Past Medical History Medical History Asthma Surgical History Surgical History History of tubal ligation Family History Family History Father Bone cancer Skin cancer (melanoma) Heart murmur Mother Multiple sclerosis Diabetes mellitus Social History Social History Smoking status: Former smoker Alcohol intake: never Substance use: never Substance use type: does not use Gender identity (if verbalized by the patient): Female Sexual Orientation (if Verbalized by the Patient): Bisexual Spiritual care concerns: No Meds Home Medications and Allergies Home Medications Medication Instructions Recorded Confirmed Type No Home Medications 08/12/21 08/12/21 History Allergies Allergy/AdvReac Type Severity Reaction Status Date / Time pecan nut Allergy Difficulty Verified 08/12/21 17:15 Breathing Penicillins Allergy Dyspnea / Verified 08/12/21 17:15 SOB vancomycin Allergy Itching Verified 08/12/21 17:15 Vital Signs Vital Signs - 24 hr 08/12/21 16:37 08/12/21 17:30 Pulse Rate 83 95 Respiratory Rate 16 Blood Pressure 122/74 112/63 Pulse Oximetry 100 99 Oxygen Delivery Room Air Exam Narrative: APPEARANCE: No acute distress, nontoxic, resting in bed HEENT: Normocephalic, atraumatic, OMM RESPIRATORY: No respiratory distress, clear to auscultation bilaterally with no rhonchi wheezing or rales CARDIOVASCULAR: RRR s murmur ABDOMINAL: Soft nondistended, tender to palpation in left lower quadrant, rebound and guarding 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 No clubbing, cyanosis or edema. NEURO: Awake and alert. Following commands, speech normal, no focal deficits SKIN:: Warm, dry. Normal Color PSYCHIATRIC: Normal affect/mood H&P: Results Labs Labs: Short CBC 08/12/21 Range/Units 16:39 WBC 10.9 H (4.5-10.0) K/mm3 Hgb 14.2 D (12.0-15.0) g/dL Hct 43.7 (37.0-47.0) % Plt Count 274 (150-375) k/mm3 BMP 08/12/21 16:39 Sodium 140 Potassium 3.6 Chloride 107 Carbon Dioxide 24 BUN 8 Creatinine 0.50 L Glucose 99 Calcium 8.9 Liver Function 08/12/21 Range/Units 16:39 Total Bilirubin 0.3 (0.2-1.3) mg/dL AST 18 (14-36) U/L ALT 15 (6-35) U/L Alkaline Phosphatase 65 (38-126) U/L Albumin 4.4 (3.5-5.1) g/dL Assessment and Plan Assessment and plan (1) Ectopic of left ovary: Code(s): O00.202 - Left ovarian without intrauterine Status: Acute Assessment and Plan: - US and exam findings consistent with ruptured left tubal of the BTL stump - Proceed with diagnostic laparoscopy with plan for removal of ectopic and any remaining tubal stumps - Risks and benefits explained in detail (2) History of tubal ligation: Code(s): Z98.51 - T
--- NOTE | 2021-08-12 18:19 | WPDHPUPDATE1 ---
History and Physical Update Update Date/Time: 08/12/21 18:19 History and Physical has been reviewed, including an updated exam of the patient. There are NO changes in the patient's condition. Risks, benefits, and alternatives have been discussed and questions answered. Patient agrees to proceed with procedure.
--- NOTE | 2021-08-12 18:26 | WPDANESEPPF ---
Anes - Initial Pre Proc Eval Procedure: Operation Date: 08/12/21 19:30 Proposed Procedures p Diagnostic Laparoscopy Pos Lap - Stacey León MD Date/Time: 08/12/21 18:26 Pre Op Diagnosis: tubal Patient Data Age: 25 Gender: F Height: 1.78 m Weight: 86.18 kg Last Vital Signs Pulse 95 08/12/21 17:30 Resp 16 08/12/21 16:37 BP 125/82 08/12/21 18:01 Pulse Ox 98 08/12/21 18:01 O2 Del Method Room Air 08/12/21 16:37 Allergies Allergy/AdvReac Type Severity Reaction Status Date / Time pecan nut Allergy Difficulty Verified 08/12/21 17:15 Breathing Penicillins Allergy Dyspnea / Verified 08/12/21 17:15 SOB vancomycin Allergy Itching Verified 08/12/21 17:15 Home Medications Medication Instructions Recorded Confirmed Type No Home Medications 08/12/21 08/12/21 History Laboratory Tests 08/12/21 08/12/21 08/12/21 16:39 16:39 16:39 WBC 10.9 K/mm3 H K/mm3 (4.5-10.0) RBC 4.49 M/mm3 M/mm3 (4.2-5.4) Hgb 14.2 g/dL D g/dL (12.0-15.0) Hct 43.7 % % (37.0-47.0) MCV 97.3 fl fl (80-100) MCH 31.6 pg pg (26-34) MCHC 32.5 g/dl g/dl (32-36) RDW 13.9 % % (11.5-14.5) Plt Count 274 k/mm3 k/mm3 (150-375) MPV 10.9 fl H fl (7.4-10.4) Immature Gran % (Auto) 0.4 % % (0-0.5) Neut % (Auto) 72.5 % % (45.5-73.1) Lymph % (Auto) 20.9 % % (18.3-44.2) Andrews % (Auto) 5.4 % % (2.6-8.5) Eos % (Auto) 0.6 % % (0-4.4) Baso % (Auto) 0.2 % % (0.2-1.2) Lymph # (Auto) 2.28 K/mm3 K/mm3 (0.9-3.2) Andrews # (Auto) 0.6 K/mm3 K/mm3 (0.1-0.6) Eos # (Auto) 0.1 K/mm3 K/mm3 (0-0.3) Baso # (Auto) 0.0 K/mm3 K/mm3 (0.0-0.1) Abs Immat Gran (auto) 0.04 K/mm3 H K/mm3 (0.00-0.031) Absolute Neuts (auto) 7.9 K/mm3 H K/mm3 (1.3-6.7) Absolute Nucleated RBC 0.0 K/mm3 K/mm3 (0.0-0.012) Nucleated RBC % 0.0 % % (0.0-0.2) Sodium 140 mmol/L mmol/L (137-145) Potassium 3.6 mmol/L mmol/L (3.4-5.0) Chloride 107 mmol/L mmol/L (98-107) Carbon Dioxide 24 mmol/L mmol/L (22-30) Anion Gap 9 mmol/L mmol/L (8-16) BUN 8 mg/dL mg/dL (7-17) Creatinine 0.50 mg/dL L mg/dL (0.7-1.0) Estim Creat Clear Calc 156 ml/min ml/min Estimated GFR > 60 (59 - ) Glucose 99 mg/dL mg/dL (65-110) Calcium 8.9 mg/dL mg/dL (8.4-10.2) Total Bilirubin 0.3 mg/dL mg/dL (0.2-1.3) AST 18 U/L U/L (14-36) ALT 15 U/L U/L (6-35) Alkaline Phosphatase 65 U/L U/L (38-126) Total Protein 8.0 g/dL g/dL (6.3-8.2) Albumin 4.4 g/dL g/dL (3.5-5.1) Beta HCG, Quant 912.14 mIU/ML mIU/ML Blood Type Antibody Screen 08/12/21 17:05 WBC RBC Hgb Hct MCV MCH MCHC RDW Plt Count MPV Immature Gran % (Auto) Neut % (Auto) Lymph % (Auto) Andrews % (Auto) Eos % (Auto) Baso % (Auto) Lymph # (Auto) Andrews # (Auto) Eos # (Auto) Baso # (Auto) Abs Immat Gran (auto) Absolute Neuts (auto) Absolute Nucleated RBC Nucleated RBC % Sodium Potassium Chloride Carbon Dioxide Anion Gap BUN Creatinine Estim Creat Clear Calc Estimated GFR Glucose Calcium Total Bilirubin AST ALT Alkaline Phosphatase Total Protein Albumin Beta HCG, Quant Blood Type Pending Antibody Screen Pending Patient hx anesthesia problems: none Family hx anesthesia problems: none Results Review: All pre-operative results and documents have been rev
[2021-08-12] MEDS: BUPIVACAINE HCL 0.25% PF 30 ML VIAL INFILTRATE (19:07)
[2021-08-12] MEDS: LACTATED RINGERS 1,000 ML 30 ML IV CONT (19:52)
[2021-08-12] MEDS: fentaNYL CITRATE INJ (*CRX) 100 MCG/2 ML VIAL 25 MCG IV PUSH ×3 (20:00→20:10)
--- NOTE | 2021-08-12 20:00 | P.OP_ITS ---
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 She was immediately sent to the ER where US showed left complex mass with moderate amount of free fluid. Findings Uterus sounded to 9cm; normal cervix. Moderate amount of hemoperitoneum noted; at least 150cc. Ectopic noted from the fimbriated end of the left tube. Right tube remnant noted to have multiple paratubal cysts and also removed. Normal ovaries. Pelvis and abdomen irrigated and suctioned free of blood. Good hemostasis at end of case. Description of Procedure Kavitha was taken operating room where she was placed under general endotracheal anesthesia without complications. She was then prepped and draped in the usual sterile fashion in the dorsal lithotomy position with her legs in low stirrups. A time-out was performed and no preoperative antibiotics were indicated. Attention was turned down below where her bladder was drained and a diagnostic uterine manipulator was placed without complications. My gloves were changed and my attention was turned to the abdomen where a infraumbilical incision was made. A 5 mm trocar was placed under direct visualization without complications and hemoperitoneum was immediately noted. Two additional ports were placed under direct visualization, the 5 mm in the left lower quadrant and a 10 mm in the right lower quadrant. The uterus was elevated and blood was suctioned from the posterior cul-de-sac. The ectopic was then noted to be arising from the fimbriated end of the left fallopian tube and bleeding was seen. The tube and ectopic were elevated, cross clamped, coagulated, and transected and placed in front of the uterus. The right fallopian tube was examined and multiple paratubal cysts was noted on the fimbriated and, therefore it was removed. A bag was placed within the abdomen and the ectopic was placed within it and removed from the abdomen. The pelvis was copiously irrigated and suctioned free of all clots and debris. Good hemostasis was noted. All instruments were removed from the abdomen. The insufflation was released and the trocars were removed. A [id number] using 0 Vicryl stitch was placed in the fascia of the 10 mm incision. The incision sites were then reapproximated using 4-0 Monocryl and infiltrated using 0.25% Marcaine for better pain control. The uterine manipulator was removed. The patient was awoken from anesthesia in a stable condition with plans of same-day discharge home. Estimated Blood Loss 150 Urine Output -400.0 Drains No Packing No Pathology Yes Complications No immediate complications Condition Stable Disposition Same day [facility] Billing Surgery - Charge Forward: Surgery Billing
[2021-08-12] MEDS: ONDANSETRON INJ 4 MG/2 ML VIAL IV PUSH (20:30)
[2021-08-12] MEDS: diphenhydrAMINE HCl INJ 50 MG/ML VIAL 25 MG IV PUSH (20:44)
--- NOTE | 2021-08-12 21:17 | SUR.PHASEII ---
Patient dizzy and nauseated. Unable to get up off stretcher to recliner. Discussed with Dr León. Orders to admit.
[2021-08-12] MEDS: DEXTROSE 5%/LACTATED RINGERS 1,000 ML 125 ML IV CONT (22:17)
[2021-08-12] MEDS: KETOROLAC 30 MG/ML VIAL (*BKC) IV PUSH (22:44)
[2021-08-12 23:04] LABS: Basophils Percent Auto 0.1 % (0.2-1.2); Eosinophils Percent Auto 0.1 % (0-4.4); Hematocrit 37.9 % (37.0-47.0); Hemoglobin 12.3 g/dL (12.0-15.0); Immature Granulocyte Absolute 0.06 K/mm3 (0.00-0.031); Immature Granulocyte Percent A 0.4 % (0-0.5); Lymphocytes Absolute Auto 1.49 K/mm3 (0.9-3.2); Lymphocytes Percent Auto 10.1 % (18.3-44.2); Mean Corpuscular HGB Conc 32.5 g/dl (32-36); Mean Corpuscular Hemoglobin 31.5 pg (26-34); Mean Corpuscular Volume 97.2 fl (80-100); Mean Platelet Volume 10.8 fl (7.4-10.4); Monocytes Absolute Auto 0.5 K/mm3 (0.1-0.6); Monocytes Percent Auto 3.1 % (2.6-8.5); Neutrophils Absolute Auto 12.7 K/mm3 (1.3-6.7); Neutrophils Percent Auto 86.2 % (45.5-73.1); Platelet Count Result 210 k/mm3 (150-375); Red Cell Distribution Width 13.8 % (11.5-14.5); White Blood Count 14.8 K/mm3 (4.5-10.0)
--- NOTE | 2021-08-12 23:40 | OBADM ---
This patient, Kavitha Bermeo, admitted to the OB room OB Post [facility] for observation. Patient/family oriented to hospital policies and general routines including ID bracelet, bed and alarms, visiting hours, pain management, procedures, bathroom and other care routines, personal items, smoking policy, room service/diet, and visiting hours. Patient/Family are encouraged to report perceived risks to care and to ask questions if they do not understand what they are told or what they should do.
[2021-08-13] VITALS (90 sets, daily range): BP systolic 96–116; BP diastolic 56–75; PULSE 50–266; TEMP 36.5–37.1; O2SAT 93–100
[2021-08-13] MEDS: HYDROcodone/acetaminophen (*CRX) 5-325 MG TABLET 1 TAB PO ×2 (01:21→07:52)
[2021-08-13] MEDS: ONDANSETRON INJ 4 MG/2 ML VIAL IV PUSH (03:58)
[2021-08-13] MEDS: KETOROLAC 30 MG/ML VIAL (*BKC) IV PUSH (05:40)
[2021-08-13] MEDS: DEXTROSE 5%/LACTATED RINGERS 1,000 ML 125 ML IV CONT (05:41)
[2021-08-13] MEDS: SIMETHICONE 80 MG TAB.CHEW PO (05:56)
--- NOTE | 2021-08-13 06:09 | PC.NURSE ---
This RN at bedside. PT verbalizes recent suicidal thoughts due to discontinuing antidepressants due to positive test. PT stated that she did not have these thoughts while on antidepressants. PT verbalizes that she has never thought of a plan or acted on these thoughts in the past ten years. PT also states that she does not know how to seek help or who to talk to. This RN discussed the importance of continuing antidepressants and reassured PT that Dr. León will be consulted. PT verbalized understanding. PT stable at this time and not having suicidal thoughts.
--- NOTE | 2021-08-13 07:45 | PC.NURSE ---
Dr. León in department, notified of pt's recent suicidal thoughts per previous shift RN. Dr. León states the pt can call the office if she needs a refill on her current medication or if she needed more resources like counseling. New orders received to discharge pt home after she eats breakfast.
[2021-08-13] MEDS: DOCUSATE SODIUM 100 MG CAPSULE PO (07:53)
--- NOTE | 2021-08-20 07:53 | PM.SD2 ---
Same Day Admit/Disch: HPI History of Present Illness Chief complaint: tubal Narrative: Kavitha is a 25yo [id number], LMP 07/03/21 who presented to clinic today with + beta. She underwent bilateral laparoscopic partial salpingectomy 06/2020. She reports her cycle was late and took a UPT at home; all 3 were positive. She went to [place] where beta was 294 on 08/07/21; US was negative. She repeated beta (same lab) and it increased to 595 today. She has been having significant LLQ pain/pressure since yesterday. She was immediately sent to the ER after exam revealed guarding and rebound tenderness. US shows left complex mass ~2cm w/ moderate amount of free fluid. Vitals and labs are stable. No symptoms of anemia PMFSH Past Medical History Medical History Asthma Surgical History Surgical History History of tubal ligation Family History Family History Father Bone cancer Skin cancer (melanoma) Heart murmur Mother Multiple sclerosis Diabetes mellitus Social History Social History Smoking status: Former smoker Second hand tobacco smoke exposure: No Alcohol intake: former Substance use: former Substance use type: does not use Gender identity (if verbalized by the patient): Female Sexual Orientation (if Verbalized by the Patient): Bisexual Spiritual care concerns: No Same Day Admit/Disch: Med Pre-admit Medications Home Medications Medication Instructions Recorded Confirmed Type acetaminophen 500 mg capsule 1,000 mg PO Q8H 10 days #60 caps 08/12/21 Rx docusate sodium 100 mg capsule 100 mg PO BID #60 caps 08/12/21 Rx (Colace) ibuprofen 800 mg tablet 800 mg PO TID 10 days #30 tabs 08/12/21 Rx oxycodone 5 mg tablet 5 mg PO Q4H PRN pain 3 days #18 08/12/21 Rx tabs Exam Const: General: uncomfortable Resp: Effort & Inspection: normal respiratory effort Cardio: Rate: regular rate GI: GI Palp: Yes Guarding due to palpation present (GI) : Speculum Exam - Cervix: Cervical tenderness present Skin: General skin exam: normal color Psych: Affect: normal affect DS: Data Data Completed and Pending Completed studies during hospitalization: Pending at discharge 08/12/21 19:25 Surgical [PTH] Routine DS: Summary Hospital Course Reason for hospitalization: She underwent laparoscopic removal of tubal and continued to have nausea, vomiting and dizziness after general anesthesia. She was kept for pain control and to verify that she could ambulate and tolerate regular diet. Status at Discharge Functional status at discharge: independent ambulation Overall status at discharge: patient is back to baseline Time Spent with Patient Time attestation: Total time spent providing and/or coordinating discharge services: Time spent: Less than 30 minutes DS: Admitting Diagnosis Discharge Date 08/13/21 Admitting Diagnosis Ruptured ectopic History of tubal ligation DS: Discharge Diagnosis Discharge Diagnosis Plan S/p laparoscopic removal of ectopic Discharge Plan Discharge Attending physician on discharge: Stacey León Consulting providers: Alcides Aden Discharging Clinician: Stacey León Anticipated Discharge Date/Time: 08/13/21 09:45 Patient Disposition: Home, Self-Care Activity: other - see discharge instructions Diet: regular Discharge Instructions: keep incisions clean. take meds as prescribed. No heavy lifting >10 pounds for 2 weeks. Call the office with any questions/concerns. Stand Alone Forms: General Discharge Information, Work/School Release IP Follow-up/Referrals: Stacey León MD [Primary Care Provider] - 2 Weeks Discharge Medications: New ibuprofen 800 mg tablet 800 mg PO TID 1
== END 2021-08-13 10:00 | disposition home or self-care (01) ==
LOC: ANHED 17:40 → ANHSURGERY 21:41 → ANHOBPP 21:42
PROVIDERS: Admitting Provider Obstetrics & Gynecology; Emergency Provider Emergency Medicine; PCP Obstetrics & Gynecology; Visit Provider Obstetrics & Gynecology
PROC: (CPT 49320; principal; 2021-08-12 19:30)
DX: O00.102 Left tubal pregnancy without intrauterine pregnancy (principal); K66.1 Hemoperitoneum; N83.8 Other noninflammatory disorders of ovary, fallopian tube and broad ligament; Z98.51 Tubal ligation status; Z87.891 Personal history of nicotine dependence; Z3A.00 Weeks of gestation of pregnancy not specified
CPT/HCPCS: 59150; 36415; 76801; 76817; 80053; 84702; 85025; 86850; 86900; 86901; 88305; 96361; 96374; 96375; 99285; A9270; G0378; G0379; J0131; J0330; J1200; J1885; J2250; J2270; J2405; J2704; J3010; J7030; J7120; J7121

== ENCOUNTER 2024-07-12 09:39 | Outpatient (CLI) | payer OTHER, SELFPAY ==
[2024-07-12 10:07] LABS: Hematocrit 41.5 % (37.0-47.0); Hemoglobin 13.3 g/dL (12.0-15.0)
--- OUTSIDE RECORDS SUMMARY | 2024-07-12 10:17 | XMS_ITS | Referral Summary ---
Author Organization [facility] [id number] [place] [id number] Care Team Providers Care Manager Operations Name Role Phone No, Physician Primary Care Provider [phone] Allergies Active Allergy Reactions Criticality Noted Date Comments Pecan Nut Anaphylaxis,Angioedema High 04/06/2017 Penicillins Hives,Shortness of breath High Vancomycin Hives Medium Medications ferrous sulfate 325 mg (65 mg of elemental iron) tablet Take 1 tablet by mouth daily 03/12/2020 Active Active Problems Problem Noted Date Diagnosed Date Major depressive disorder with current active ep isode 05/19/2017 BMI 26.0-26.9,adult 05/19/2017 Dizziness 05/19/2017 Fatigue 05/19/2017 Acute non-seasonal allergic rhinitis 05/19/2017 Social History Tobacco Use Types Packs/Day Years Used Date Smoking Tobacco: Former Cigarettes Smokeless Tobacco: Never Tobacco Cessation:Ready to Q uit: Yes; Counseling Given: Yes Alcohol Use Standard Drinks/Week Comments No 0 (1 standard drink = 0.6 oz pur e alcohol) Personal Safety Answer Date Recorded Have you ever been in or are you currently in a harmful physical or emotional relationship or is someone making you feel afraid or unsafe? Denies 02/09/2023 Comments No Sex and Gender Information Value Date Recorded Sex Assigned at Not on file Legal Sex Female 9:50 AM HOSE MAKER Gender Identity Not on file Sexual Orientation Not on file Occupation Industry Job Start Date Job End Date unemployed Not on file Not on file Not on file Last Filed Vital Signs Vital Sign Reading Time Taken Comments Blood Pressure 132/86 02/09/2023 7:59 AM HOSE MAKER Pulse 80 02/09/2023 7:59 AM HOSE MAKER Temperature 36.3 C (97.3 F) 02/09/2023 7:59 AM HOSE MAKER Respiratory Rate 16 02/09/2023 7:59 AM HOSE MAKER Oxygen Saturation 100% 02/09/2023 7:59 AM HOSE MAKER Inhaled Oxygen Concentration - - Weight 79.8 kg (176 lb) 02/09/2023 7:59 AM HOSE MAKER Height 177.8 cm (5' 10 ) 07/22/2019 7:13 AM CDT Body Mass Index 25.25 07/22/2019 7:13 AM CDT Plan of Treatment Not on file Insurance [facility] Advance Directives For more information, please contact: [phone] * Full Code (Latest Code Status on File) Date Activated Date Inactivated Comments 04/29/2020 6:05 PM 04/30/2020 6:20 AM Full CPR in case of cardiopulmonary arrest Care Teams Manager Operations Relationship Specialty Start Date End Date No, Physician PCP - General 07/22/19
--- OUTSIDE RECORDS SUMMARY | 2024-07-12 10:17 | XMS_ITS | Clinical Summary ---
Author Organization [facility] Address [address] [place] [address] Phone Care Team Providers Care Financial Planning Advisor Name Role Phone Provider, None Primary Care Provider Unavailabl e Allergies Active Allergy Reactions Criticality Noted Date Comments Penicillins Hives 10/15/2020 Vancomycin Hives 10/15/2020 Medications HYDROcodone-sarwat taminophen (NORCO) 5-325 MG TabletIndicatio ns:Traumatic amputation of tip of finger of right hand Take 1 Tablet by mouth every 8 hours as needed for Moderate or more severe pain. 15 Tablet 05/17/2021 Active Social History Tobacco Use Types Packs/Day Years Used Date Smoking Tobacco: Never Smokeless Tobacco: Never Alcohol Use Standard Drinks/Week Comments Never 0 (1 standard drink = 0.6 oz pur e alcohol) Comments No Sex and Gender Information Value Date Recorded Sex Assigned at Not on file Legal Sex Female 2:50 PM CDT Gender Identity Not on file Sexual Orientation Not on file Last Filed Vital Signs Vital Sign Reading Time Taken Comments Blood Pressure 117/66 05/17/2021 3:30 PM FACTORY ASSEMBLER Pulse 108 05/17/2021 3:30 PM FACTORY ASSEMBLER Temperature 36.3 C (97.3 F) 05/17/2021 3:03 PM FACTORY ASSEMBLER Respiratory Rate 14 05/17/2021 3:30 PM FACTORY ASSEMBLER Oxygen Saturation 100% 05/17/2021 3:30 PM FACTORY ASSEMBLER Inhaled Oxygen Concentration - - Weight 81.6 kg (180 lb) 05/17/2021 3:03 PM FACTORY ASSEMBLER Height 177.8 cm (5' 10 ) 05/17/2021 3:03 PM FACTORY ASSEMBLER Body Mass Index 25.83 05/17/2021 3:03 PM FACTORY ASSEMBLER Plan of Treatment Not on file Insurance MEDICAID [place] Care Teams Financial Planning Advisor Relationship Specialty Start Date End Date Provider, None [place] PCP - General 05/17/21
--- OUTSIDE RECORDS SUMMARY | 2024-07-12 10:17 | XMS_ITS | Clinical Summary ---
Author Organization [facility] [id number] [place] [phone] Care Team Providers Care Windows Software Developer Name Role Phone No, Physician Primary Care Provider [phone] Allergies Active Allergy Reactions Criticality Noted Date [...] Fatigue 05/19/2017 Acute non-seasonal allergic rhinitis 05/19/2017 Surgical History Surgery Date Site/Laterality Comments DILATION AND CURETTAGE OF UTERUS Medical History Medical History Date Comments Asthma Depression Osteoarthritis of both knees Family History Medical History Relation Name Comments Asthma Brother 4 Hypertension Brother 4 Blood Clot Father Hyperlipidemia Father Hypertension Father Kidney disease Father No Known Problems Maternal Grandfather Heart disease Maternal Grandmother Blood Clot Mother Diabetes Mother Multiple sclerosis Mother Heart disease Paternal Grandfather No Known Problems Paternal Grandmother Asthma Sister 4 Relation Name Status Comments Brother 4 Alive Father Alive Maternal Grandfather Maternal Grandmother Alive Mother Alive Paternal Grandfather Paternal Grandmother Sister 4 Alive Social History Tobacco Use Types Packs/Day Years [...] on file Legal Sex Female 9:50 AM RIVET FLUNKY Gender Identity Not on file Sexual Orientation Not on file Occupation Industry Job Start Date Job End Date unemployed Not on file Not on file Not on file Obstetrics History Para Term AB IAB SAB Ectopic Multiple Livin g Live Births 6 3 2 1 2 1 1 0 0 3 3 Date Outcome GA Total Labor Labor/2nd/3rd Weight Sex Type Anes PTL Meg A1 A5 Name Clin Term Livin g Livin g IAB 019 Term 39w 0d F Vag-S pont Epidur al Livin g Complications:None Delivery [facility]: [facility] SAB SAB Last Filed Vital Signs Vital Sign Reading Time Taken Comments Blood Pressure 132/86 02/09/2023 7:59 AM RIVET FLUNKY Pulse 80 02/09/2023 7:59 AM RIVET FLUNKY Temperature 36.3 C (97.3 F) 02/09/2023 7:59 AM RIVET FLUNKY Respiratory Rate 16 02/09/2023 7:59 AM RIVET FLUNKY Oxygen Saturation 100% 02/09/2023 7:59 AM RIVET FLUNKY Inhaled Oxygen Concentration - - Weight 79.8 kg (176 lb) 02/09/2023 7:59 AM RIVET FLUNKY Height 177.8 cm (5' 10 ) 07/22/2019 7:13 AM CDT Body Mass Index 25.25 07/22/2019 7:13 AM CDT Plan of Treatment Health Maintenance Due Date Last Done Comments Cervical Cancer Screening 1996 Hepatitis C Screening 1996 Varicella Vaccines (1 of 2 - 13+ 2-dose series) 2009 Hepatitis B Screening 2014 Regular Well Visit/Exam 18-64 2014 Depression Screening 04/06/2018 04/06/2017, 04/06/2017 DTaP/Tdap/Td Vaccine (2 - Td or Tdap) 12/23/2019 12/22/2009 Influenza Vaccine (Season Ended) 2024 HPV Vaccines Aged Out No longer eligi ble based on patient's age to complete this topic Pneumococcal vaccine <65 Aged Out No longer eligible based on patient's age to complete this topic Insurance [facility] Advance Directives For more information, please contact: [phone] * Full Code (Latest Code Status on File) Date Activated Date Inactivated Comments 04/29/2020 6:05 PM 04/30/2020 6:20 AM Full CPR in case of cardiopulmonary arrest Care Teams Windows Software Developer Relationship Specialty Start Date End Date No, Physician PCP - General 07/22/19
--- OUTSIDE RECORDS SUMMARY | 2024-07-12 10:17 | XMS_ITS | Encounter Summary ---
Author Organization [facility] Address [address] [place] [address] Phone Care Team Providers Care Occupational Therapist'S Assistant Name Role Phone Lela Gregg NP Primary Care Provider No, Physician Primary Care Provider [phone] Encounter Details Date Type Department Care Team (Late st Contact Info) Description 05/19/2017 Orders Only [facility] ProviderJanine MD [address] [place] [id number] Social History Tobacco Use Types Packs/Day Years Used Date Smoking Tobacco: Every Day Smokeless Tobacco: Never Alcohol Use Standard Drinks/Week Comments No 0 (1 standard drink = 0.6 oz pur e alcohol) Comments Unknown Sex and Gender Information Value Date Recorded Sex Assigned at Not on file Legal Sex Female 9:50 AM IMPROVEMENT LEADER Gender Identity Not on file Sexual Orientation Not on file Occupation Industry Job Start Date Job End Date unemployed Not on file Not on file Not on file documented as of this encounter Plan of Treatment Not on file documented as of this encounter Procedures Procedure Name Priority Date/Time Associated Diagnosis Comments DISCHARGE LABORATORY CUMULATIVE REPORT 05/19/2017 12:00 AM IMPROVEMENT LEADER documented in this encounter Results * DISCHARGE LABORATORY CUMULATIVE REPORT (05/19/2017 12:00 AM IMPROVEMENT LEADER) Narrative 05/19/2017 12:00 AM IMPROVEMENT LEADER Ordered by an unspecified provider. Historical Provider LAB BLOOD ORDERABLES Maura l Result documented in this encounter Visit Diagnoses Not on filedocumented in this encounter Care Teams Occupational Therapist'S Assistant Relationship Specialty Start Date End Date Lela Gregg, PAYROLL BOOKKEEPER PCP - General Family Medicine 05/19/17 07/21/19 No, Physician PCP - General 07/22/19 documented as of this encounter
--- OUTSIDE RECORDS SUMMARY | 2024-07-12 10:17 | XMS_ITS | Clinical Summary ---
Author Organization [facility] Address [address] [address] Care Team Providers Care Cleaners Name Role Phone Amelia Echeverria FOXPRO DEVELOPER-TIGHTENER Primary Care Provider Source Comments [facility],non-owned Affiliates and Associated Physician Practices is amultiple site organization consisting of ambulatory clinics and hospital sitesin [place], [place], [place] and [place]. This disclosure is being madepursuant to the Care Everywhere program and may not contain all information available regarding this patient. Last updated 17.[facility] Allergies Active Allergy Reactions Criticality Noted Date Comments Penicillins Shortness of Breath,Rash High 01/23/2012 Vancomycin Rash,Itching Low 12/10/2013 Medications * Be aware that medications may not be up to date on this document. Alwaysverify current medications with the patient. norethin-eth estradiol-FE (LOESTRIN FE .08/10) 1.5-30 MG-MCG tablet Take 1 tablet by mouth once daily 1 packet 6 10/10/2018 Active Active Problems Problem Noted Date Diagnosed Date Infective urethritis 02/23/2018 Psychiatric diagnosis Resolved Problems Problem Noted Date Diagnosed Date Resolved Date Normal delivery 09/01/2018 10/10/2018 False labor after 37 weeks o f gestation without delivery 08/24/2018 09/03/2018 Indication for care in labor or delivery 05/16/2018 10/10/2018 19 weeks gestation of 04/13/2018 06/23/2018 11 weeks gestation of 02/22/2018 06/23/2018 Blighted ovum 12/14/2016 05/27/2017 First trimester bleeding 12/14/2016 Incomplete miscarriage 12/14/201605/27 Acute blood loss anemia 12/14/201605/12 Menorrhagia with irregular cycle 12/14/2016 05/27/2017 Acute endometritis 02/25/2016 7 labor in third trimester 05/09/2015 05/10/2015 High-risk in second trimester 03/21/2015 05/10/2015 Short cervical length during in second trimester 02/28/2015 05/10/2015 UTI in 02/28/2015 05/10/2015 Breech presentation with problem 02/28/2015 03/25/2015 Threatened premature labor i n second trimester 02/23/2015 05/10/2015 Second 02/18/2015 12/11/2015 Evaluate anatomy not seen on prior sonogram 01/21/2015 12/11/2015 Encounter for supervision of other normal 12/03/2014 12/11/2015 Overview (01/19/2015): labor 12/17/2013 01/17/2014 labor 11/16/2013 01/17/2014 High risk teen 11/16/2013 Supervision of normal first 08/28/2013 02/27/2014 Overview (12/09/2013): B+/I/-/-, NR GCT 107 GBS Pend Immunizations Immunization Administration Dates Next Due MMR 09/03/2018 Family History Medical History Relation Name Comments Hypertension Brother Hypertension Father Twins Father Arthritis Maternal Grandfather Diabetes Maternal Grandfather Heart Disease Maternal Grandfather Hypertension Maternal Grandfather Arthritis Maternal Grandmother Cancer Maternal Grandmother Diabetes Mother Genetic/Metabolic Disease Other Arthritis Paternal Grandfather Diabetes Paternal Grandfather Heart Disease Paternal Grandfather Hypertension Paternal Grandfather Arthritis Paternal Grandmother Stroke Paternal Grandmother Toxemia Paternal Grandmother Relation Name Status Comments Brother Father Maternal Grandfather Maternal Grandmother Mother Other Paternal Grandfather Paternal Grandmother Social History Tobacco Use Types Packs/Day Years Used Date Smoking Tobacco: Former Cigarettes Q uit: 09/08/2014 Smokeless Tobacco: Never Tobacco Cessation:Counseling Given: Yes Alcohol Use Standard Drinks/Week Comments No 0 (1 standard drink = 0.6 oz pur e alcohol) Comments No Sex and Gender Information Value Date Recorded Sex Assigned at Not on file Legal Sex Female 12:19 PM CDT Gender Identity Not on file Sexual Orientation Not on file Last Filed Vital Signs Vital Sign Reading Time Taken Comments Blood Pressure 116/78 11/09/2018 2:58 PM CDT Pulse 85 09/02/2018 2:35 PM CDT Temperature 36.6 C (97.9 F) 09/03/2018 6:43 AM CDT Respiratory Rate 17 09/02/2018 10:24 PM CDT Oxygen Saturation 98% 09/03/2018 6:45 AM CDT Inhaled Oxygen Concentration - - Weight 87.1 kg (192 lb) 11/09/2018 2:58 PM CDT Height 177.8 cm (5' 10 ) 09/01/2018 6:06 AM CDT Body Mass Index 27.55 09/01/2018 6:06 AM CDT Plan of Treatment Health Maintenance Due Date Last Done Comments DTAP/TDAP/TD VACCINES (1 - Tdap) 08/24/2015 HEPATITIS B VACCINE (1 of 3 - 19+ 3-dose series) 08/24/2015 COVID-19 VACCINE ( - 2023- season) 2023 DEPRESSION SCREENING 03/14/2024 INFLUENZA VACCINE (Season Ended) 2024 ZOSTER VACCINE (1 of 2) 2046 HIV SCREENING Completed 10/29/2016, 10/12, 05/22/2013 HEPATITIS C SCREENING Completed 09/01/2018 , 10/29/2016, 10/29/2014, Additional history exists HIB VACCINE Aged Out No longer eligi ble based on patient's age to complete this topic HPV VACCINE Aged Out No longer eligi ble based on patient's age to complete this topic MENINGOCOCCAL (Group B) VACCINE SHARED DECISION-MAKING Aged Out No longer eligible based on patient's age to complete this topic MENINGOCOCCAL GROUPS A/C/Y/W VACCINE Aged Out No longer eligible based on patient's age to complete this topic PNEUMOCOCCAL VACCINE Aged Out No long er eligible based on patient's age to complete this topic Procedures Procedure Name Priority Date/Time Associated Diagnosis Comments HEPATITIS C ANTIBODY STAT 09/01/2018 6:31 AM CDT STREP B YOUNG RFLX SUSC Routine 08/01/2018 1:25 PM CDT with 34 completed weeks gestation HIV-1 HIV-2 ANTIBODY + HIV P24 AG PANEL Routine 10/29/2016 11:54 AM CDT and not yet delivered in first trimester GLUCOSE CHALLENGE Routine 10/16/2013 3:0 0 PM CDT Supervision of normal first , third trimester from Last 3 Months or Most Recently Relevant to Health Maintenance Results * HEPATITIS C ANTIBODY (09/01/2018 6:31 AM CDT) HCV Antibody Screen Non Reactive Non Reactive 09/01/2018 11:46 AM CDT [facility] HCV S/C Ratio 0.27 0.00 - 0.79 09/01/2018 11:46 AM CDT [facility] Comment: Miqgfw-al-pzdysd ratio (S/CO) <0.80: Non Reactive Blood BLOOD SPECIMEN / Unknown Lab Venipuncture / Unknown 09/01/2018 6:31 AM CDT 09/01/2018 6:36 AM CDT Narrative [facility] - 09/01/2018 11:46 AM CDT Non Reactive - Antibodies to Hepatitis C virus (HCV) were not detected, result does not exclude early acute HCV infection. us Flex Pérez MD LAB - CHEMISTRY ORDERABLES Final Result [facility] [address] [place] [address] * STREP B YOUNG RFLX SUSC (08/01/2018 1:25 PM CDT) Strep B YOUNG Rflx Suseptibility Negative Negative [facility] INSURANCE BILL Comment: Centers for Disease Control and Prevention (CDC) and [place] [employer] of Obstetricians and Gynecologists (ACOG) guidelines for prevention of group B streptococcal (GBS) disease specify co-collection of a vaginal and rectal swab specimen to maximize sensitivity of GBS detection. Per the CDC and ACOG, swabbing both the lower vagina and rectum substantially increases the yield of detection compared with sampling the vagina alone. . Penicillin G, ampicillin, or cefazolin are indicated for intrapartum prophylaxis of GBS colonization. Reflex susceptibility testing should be performed prior to use of clindamycin only on GBS isolates from penicillin-allergic women who are considered a high risk for anaphylaxis. Treatment with vancomycin without additional testing is warranted if resistance to clindamycin is noted. Microbiology MISCELLANEOUS SAMPLES / Unknown 08/01/2018 1:25 PM CDT 08/01/2018 Narrative Resulting Agency Comment Lab Testing performed at: [facility] [address] [facility] [id number] Flex Pérez MD LAB - MICROBIOLOGY ORDERABLES Fi nal Result [facility] INSURANCE BILL [address] [place] [address] * HIV-1 HIV-2 ANTIBODY + HIV P24 AG PANEL (10/29/2016 11:54 AM CDT) [facility] HIV1/2 Ab + P24 Ag Non Reactive Non Reactive 10/31/2016 6:50 PM CDT [facility] Blood BLOOD SPECIMEN / Unknown Lab Venipuncture / Unknown 10/29/2016 11:54 AM CDT 10/29/2016 2:33 PM CDT Narrative [facility] - 10/31/2016 6:50 PM CDT No Laboratory evidence of HIV infection. Flex Pérez MD LAB - CHEMISTRY ORDERABLES Final Result [facility] [address] [place] [id number] * GLUCOSE CHALLENGE (10/16/2013 3:00 PM CDT) [facility] Glucose Challenge 107 64 - 140 mg/dL 10/16/2013 3:57 PM CDT [facility] Blood BLOOD SPECIMEN / Unknown Lab Venipuncture / Unknown 10/16/2013 3:00 PM CDT 10/16/2013 3:42 PM CDT Flex Pérez MD LAB - CHEMISTRY ORDERABLES Final Result [facility] [address] [place] [address] from Last 3 Months or Most Recently Relevant to Health Maintenance Insurance [place] MEDICAID [employer] [facility] Advance Directives * Full Code (Latest Code Status on File) Date Activated Date Inactivated Comments 09/01/2018 5:48 AM 09/03/2018 1:21 PM * Full Code Date Activated Date Inactivated Comments 06/24/2018 5:54 PM 06/24/2018 9:32 PM * Full Code Date Activated Date Inactivated Comments 05/26/2018 9:50 PM 05/26/2018 11:32 PM * Full Code Date Activated Date Inactivated Comments 04/13/2018 2:59 PM 04/13/2018 5:55 PM * Full Code Date Activated Date Inactivated Comments 02/22/2018 7:22 PM 02/22/2018 9:04 PM Care Teams Cleaners Relationship Specialty Start Date End Date Amelia Echeverria, FOXPRO DEVELOPER-TIGHTENER [address] [place] [address] PCP - General 08/17/21
== END 2024-07-12 09:40 | disposition home or self-care (01) ==
LOC: ANHSURGERY 09:44
PROVIDERS: Visit Provider Student in an Organized Health Care Education/Training Program
DX: N87.9 Dysplasia of cervix uteri, unspecified (principal)
CPT/HCPCS: 36415; 85014; 85018

== ENCOUNTER 2024-07-24 01:10 | Day surgery (SDC) | payer OTHER, SELFPAY ==
[2024-07-10 10:10] VITALS: BMI 24.7
--- NOTE | 2024-07-10 10:24 | PC.NURSE ---
Report to the Outpatient Waiting Room, entrance under the green pavilion located off [facility], at time 1130 on date 07/24/24. Planned Procedure Time: 1330.? Time changes happen often and if your time is changed the preop area will call you the afternoon before. - You and your visitor will be asked to self-screen and do not enter if you have any COVID symptoms. Please call surgeon if you need to reschedule. - A mask is optional within the hospital at this time. Patients may have clear liquids (water, carbonated beverages, clear teas, apple juice) until 3 hours prior to surgery with a maximum of 20 ounces. - No food from midnight until time of surgery and no smoking, or chewing tobacco (or any form of nicotine). No chewing gum, candy or mints. - Infants may have breast milk until 4 hours before surgery, formula 6 hours prior to surgery. - Children will be allowed to drink immediately following surgery.? If applicable, please bring a bottle or sippy cup to assist with drinking. Juice, water, soda, and popsicles are readily available.? For infants on formula, please bring formula the day of surgery.? Pacifiers are allowed. Take only the following medications with a SIP of water on the morning of surgery: na DO NOT STOP ANY OF YOUR OTHER PRESCRIPTION MEDICATIONS PRIOR TO SURGERY EXCEPT THE FOLLOWING Hold all vitamins and supplements for 3 days per anesthesiologist. Medications to discontinue per physician na Date to take last dose Please no make-up, nail yakut, hairspray, perfume, deodorant, or body powder the day of surgery.? No jewelry (including any body piercings) or valuables the day of surgery, leave them at home.? Please take a shower or bath the night before, or the morning of, surgery with an antibacterial soap.? Wear comfortable, loose fitting clothing.? Children are encouraged to wear pajamas. - Jewelry must be removed prior to entering the operating room.? Rings and piercings that are not removed may be cut off. - The hospital will not accept responsibility for valuables.? - Please leave all valuables, including medications, at home the day of surgery. If you are going home after surgery, a licensed motor coach bus driver must drive you home.? - NO public transportation without another adult if you receive anesthesia. - We recommend that an adult stay with you for 24 hours following discharge. - We also recommend that you do not drive, make important decision, drink alcoholic beverages, or take any drugs that were not prescribed by your health care provider for at least 24 hours after your discharge time. For Pediatric surgeries, we recommend two adults accompany the child home. Follow any additional instructions given to you from your surgeon. Telephone instructions given to ___patent___and asked if any additional questions and then verbalized understanding. Patient advised to call surgeon office or pre surgery nurse liaison [phone] if any additional questions.
--- NOTE | 2024-07-23 13:58 | P.HP_ITS ---
H&P: HPI History of Present Illness Date/Time: 07/23/24 13:58 Chief Complaint: CIN2 Narrative: 28-year-old female who presents for LEEP for management of FARAZ 2. Patient initially had ASCUS Pap, HPV positive. Colposcopy was performed with 2 cervical biopsies. Biopsies returned FARAZ 1 and FARAZ 2. Review of Systems Cardiovascular: Cardiovascular: Denies chest pain, Denies leg edema, Denies palpitations, Denies dyspnea and Denies dyspnea on exertion Respiratory: Respiratory: Denies cough, Denies dyspnea and Denies dyspnea on exertion Gastrointestinal: Gastrointestinal: Denies abdominal pain, Denies constipation, Denies diarrhea, Denies nausea and Denies vomiting Genitourinary: Genitourinary: Denies hematuria, Denies urinary frequency, Den ies dysuria, Denies pelvic pain, Denies urinary incontinence and Denies vaginal discharge Neurologic: Reports system reviewed and no additional complaints, except as documented Psychiatric: Psychiatric: Reports no additional psychiatric complaints Endocrine: Endocrine: Denies palpitations PMFSH Past Medical History Medical History Abnormal Pap smear of cervix Vaginal discharge Anxiety Asthma Surgical History Surgical History History of tubal ligation Family History Family History Father Bone cancer Skin cancer (melanoma) Heart murmur Mother Multiple sclerosis Diabetes mellitus Social History Social History Years smoked: 4 Smoking status: Former smoker Tobacco type: e-cigarettes/vaping Second hand tobacco smoke exposure: No Alcohol intake: former Substance use: current Substance use type: marijuana Do You Feel Safe in your Home?: Yes Lack of Transportation: No Lack of Food: Never True Current Housing: I Have Housing Concerned About Future Housing: No Difficulty Paying Gas/Electric Bills: Decline to Answer Difficulty Paying for Meds: No Education: High School Diploma/GED Difficulty w/ Childcare or Family Care: No Living arrangements: with family Gender identity (if verbalized by the patient): Female Sexual Orientation (if Verbalized by the Patient): Bisexual Spiritual care concerns: No Meds Home Medications and Allergies Home Medications ?Medication ?Instructions ?Recorded ?Confirmed ?Type No Home Medications 07/04/24 07/10/24 History Allergies Allergy/AdvReac Type Severity Reaction Status Date / Time pecan nut Allergy Severe Difficulty Verified 07/10/24 10:09 Breathing Penicillins Allergy Severe Dyspnea / Verified 07/10/24 10:09 SOB vancomycin Allergy Mild Itching Verified 07/10/24 10:09 Exam Const: General: no acute distress Eyes: EOM: EOMs intact bilaterally Neck: Neck: supple Thyroid: thyroid normal Chest: Breast/axilla inspection: normal inspection of the breasts Breast/axilla palpation: normal palpation of the breasts, normal palpation of the axillae and no axillary lymphadenopathy Resp: Effort & Inspection: normal respiratory effort Auscultation: clear to auscultation bilaterally Cardio: Rate: regular rate Rhythm: regular rhythm GI: Inspection: non-distended GI Palp: Yes Soft to palpation, No Tenderness to palpation present (GI) and No Guarding due to palpation present (GI) Auscultation: normal bowel sounds : General: No bladder normal to palpation External Female Exam: normal external appearance Speculum Exam - Vagina: normal vaginal discharge and No vaginal bleeding Speculum Exam - Cervix: nontender Bimanual exam- vagina & uterus: No bladder normal to palpation and No Cervical tenderness present OB/external & speculum: No vaginal bleeding Skin: General skin exam: normal color and no rashes or lesions noted Neuro: Cognition (Neuro): normal cognition Speech: normal speech Extrem: General: normal to inspection and no edema Psych: Mental Status: mental status grossly normal Affect: normal affect Assessment and Plan Assessment and plan (1) FARAZ II (cervical intraepithelial neoplasia II): Code(s): N87.1 - Moderate cervical dysplasia Status: Acute Assessment and Plan: 28-year-old female who presents for LEEP for FARAZ 2 Initial Pap smear ascus, HPV positive colposcopy was performed with 2 cervical biopsies. Cervical biopsy at 6 o'clock returned FARAZ 2 12 o'clock biopsy FARAZ 1 discussed management of high-grade lesion at length Recommended excisional procedure via LEEP Risks, benefits, alternatives discussed Patient given printed handouts regarding high-grade lesions and LEEP procedure Patient consented for LEEP
--- OUTSIDE RECORDS SUMMARY | 2024-07-24 01:13 | XMS_ITS | Clinical Summary ---
Author Organization [facility] Physician Office Building [address] [place] [id number] Care Team Providers Care Ehs Manager Name Role Phone No, Physician Primary Care Provider [phone] Allergies Active Allergy Reactions Criticality Noted Date [...] on file Legal Sex Female 9:50 AM ROD TAPE OPERATOR Gender Identity Not on file Sexual Orientation [...] Comments Blood Pressure 132/86 02/09/2023 7:59 AM ROD TAPE OPERATOR Pulse 80 02/09/2023 7:59 AM ROD TAPE OPERATOR Temperature 36.3 C (97.3 F) 02/09/2023 7:59 AM ROD TAPE OPERATOR Respiratory Rate 16 02/09/2023 7:59 AM ROD TAPE OPERATOR Oxygen Saturation 100% 02/09/2023 7:59 AM ROD TAPE OPERATOR Inhaled Oxygen Concentration - - Weight 79.8 kg (176 lb) 02/09/2023 7:59 AM ROD TAPE OPERATOR Height 177.8 cm (5' 10 ) 07/22/2019 [...] patient's age to complete this topic Insurance [facility] Advance Directives For more information, please contact: [phone] * Full Code (Latest Code Status on File) Date Activated Date Inactivated Comments 04/29/2020 6:05 PM 04/30/2020 6:20 AM Full CPR in case of cardiopulmonary arrest Care Teams Ehs Manager Relationship Specialty Start Date End Date No, Physician PCP - General 07/22/19
--- OUTSIDE RECORDS SUMMARY | 2024-07-24 01:13 | XMS_ITS | Clinical Summary ---
Author Organization [facility] Address [address] [place] [address] Care Team Providers Care Cutter Down Name Role Phone Amelia Echeverria ALL SOURCE ANALYST-AUTOMOTIVE SPECIALTY TECHNICIAN Primary Care Provider Source Comments [facility],non-owned Affiliates and Associated Physician Practices is amultiple site organization consisting of ambulatory clinics and hospital sitesin [place], [place], [place] and [place]. This disclosure is being madepursuant to the Care Everywhere program and may not contain all information available regarding this patient. Last updated 17.[facility] Allergies Active Allergy Reactions Criticality Noted Date [...] Reactive Non Reactive 09/01/2018 11:46 AM CDT [facility] HCV S/C Ratio 0.27 0.00 - 0.79 09/01/2018 11:46 AM CDT [facility] Comment: Ljdcff-hb-cbjeqf ratio (S/CO) <0.80: Non Reactive Blood BLOOD SPECIMEN / Unknown Lab Venipuncture / Unknown 09/01/2018 6:31 AM CDT 09/01/2018 6:36 AM CDT Narrative [facility] - 09/01/2018 11:46 AM CDT Non Reactive - Antibodies to Hepatitis C virus (HCV) were not detected, result does not exclude early acute HCV infection. us Flex Pérez MD LAB - CHEMISTRY ORDERABLES Final Result [facility] [address] [place] [address] * STREP B YOUNG RFLX SUSC (08/01/2018 1:25 PM CDT) Strep B YOUNG Rflx Suseptibility Negative Negative [facility] INSURANCE BILL Comment: Centers for Disease Control and Prevention (CDC) and [place] [employer] of Obstetricians and Gynecologists (ACOG) guidelines [...] Resulting Agency Comment Lab Testing performed at: [facility] [address] [facility] [id number] Flex Pérez MD LAB - MICROBIOLOGY ORDERABLES Fi nal Result [facility] INSURANCE BILL [address] [place] [address] * HIV-1 HIV-2 ANTIBODY + HIV P24 AG PANEL (10/29/2016 11:54 AM CDT) [facility] HIV1/2 Ab + P24 Ag Non Reactive Non Reactive 10/31/2016 6:50 PM CDT [facility] Blood BLOOD SPECIMEN / Unknown Lab Venipuncture / Unknown 10/29/2016 11:54 AM CDT 10/29/2016 2:33 PM CDT Narrative [facility] - 10/31/2016 6:50 PM CDT No Laboratory evidence of HIV infection. Flex Pérez MD LAB - CHEMISTRY ORDERABLES Final Result [facility] [address] [place] [id number] * GLUCOSE CHALLENGE (10/16/2013 3:00 PM CDT) [facility] Glucose Challenge 107 64 - 140 mg/dL 10/16/2013 3:57 PM CDT [facility] Blood BLOOD SPECIMEN / Unknown Lab Venipuncture / Unknown 10/16/2013 3:00 PM CDT 10/16/2013 3:42 PM CDT Flex Pérez MD LAB - CHEMISTRY ORDERABLES Final Result [facility] [address] [place] [address] from Last 3 Months or Most Recently Relevant to Health Maintenance Insurance [place] MEDICAID [employer] [facility] Advance Directives * Full Code (Latest [...] 7:22 PM 02/22/2018 9:04 PM Care Teams Cutter Down Relationship Specialty Start Date End Date Amelia Echeverria, ALL SOURCE ANALYST-AUTOMOTIVE SPECIALTY TECHNICIAN [address] [place] [address] PCP - General 08/17/21
--- OUTSIDE RECORDS SUMMARY | 2024-07-24 01:13 | XMS_ITS | Referral Summary ---
Author Organization [facility] [address] [place] [id number] Care Team Providers Care Wirer Passenger Car Name Role Phone No, Physician Primary Care Provider [phone] Allergies Active Allergy Reactions Criticality Noted Date [...] on file Legal Sex Female 9:50 AM WINDOW UNIT AIR CONDITIONING MECHANIC Gender Identity Not on file Sexual Orientation Not on file Occupation Industry Job Start Date Job End Date unemployed Not on file Not on file Not on file Last Filed Vital Signs Vital Sign Reading Time Taken Comments Blood Pressure 132/86 02/09/2023 7:59 AM WINDOW UNIT AIR CONDITIONING MECHANIC Pulse 80 02/09/2023 7:59 AM WINDOW UNIT AIR CONDITIONING MECHANIC Temperature 36.3 C (97.3 F) 02/09/2023 7:59 AM WINDOW UNIT AIR CONDITIONING MECHANIC Respiratory Rate 16 02/09/2023 7:59 AM WINDOW UNIT AIR CONDITIONING MECHANIC Oxygen Saturation 100% 02/09/2023 7:59 AM WINDOW UNIT AIR CONDITIONING MECHANIC Inhaled Oxygen Concentration - - Weight 79.8 kg (176 lb) 02/09/2023 7:59 AM WINDOW UNIT AIR CONDITIONING MECHANIC Height 177.8 cm (5' 10 ) 07/22/2019 7:13 AM CDT Body Mass Index 25.25 07/22/2019 7:13 AM CDT Plan of Treatment Not on file Insurance [facility] Advance Directives For more information, please contact: [phone] * Full Code (Latest Code Status on File) Date Activated Date Inactivated Comments 04/29/2020 6:05 PM 04/30/2020 6:20 AM Full CPR in case of cardiopulmonary arrest Care Teams Wirer Passenger Car Relationship Specialty Start Date End Date No, Physician PCP - General 07/22/19
--- OUTSIDE RECORDS SUMMARY | 2024-07-24 01:13 | XMS_ITS | Clinical Summary ---
Author Organization [facility] Address [address] [place] [address] Phone Care Team Providers Care Hospital Insurance Representative Name Role Phone Provider, None Primary Care [...] Comments Blood Pressure 117/66 05/17/2021 3:30 PM GEOGRAPHIC INFORMATION SCIENTIST Pulse 108 05/17/2021 3:30 PM GEOGRAPHIC INFORMATION SCIENTIST Temperature 36.3 C (97.3 F) 05/17/2021 3:03 PM GEOGRAPHIC INFORMATION SCIENTIST Respiratory Rate 14 05/17/2021 3:30 PM GEOGRAPHIC INFORMATION SCIENTIST Oxygen Saturation 100% 05/17/2021 3:30 PM GEOGRAPHIC INFORMATION SCIENTIST Inhaled Oxygen Concentration - - Weight 81.6 kg (180 lb) 05/17/2021 3:03 PM GEOGRAPHIC INFORMATION SCIENTIST Height 177.8 cm (5' 10 ) 05/17/2021 3:03 PM GEOGRAPHIC INFORMATION SCIENTIST Body Mass Index 25.83 05/17/2021 3:03 PM GEOGRAPHIC INFORMATION SCIENTIST Plan of Treatment Not on file Insurance MEDICAID [place] Care Teams Hospital Insurance Representative Relationship Specialty Start Date End Date Provider, None OR PCP - General 05/17/21
--- OUTSIDE RECORDS SUMMARY | 2024-07-24 01:13 | XMS_ITS | Encounter Summary ---
Author Organization [facility] Address [address] [place] [address] Phone Care Team Providers Care Respite Provider Name Role Phone Lela Gregg NP Primary Care Provider No, Physician Primary Care Provider [phone] Encounter Details Date Type Department Care Team (Late st Contact Info) Description 05/19/2017 Orders Only [facility] ProviderJanine MD [address] [place] [id number] Social History Tobacco Use Types Packs/Day Years Used Date Smoking Tobacco: Every Day Smokeless Tobacco: Never Alcohol Use Standard Drinks/Week Comments No 0 (1 standard drink = 0.6 oz pur e alcohol) Comments Unknown Sex and Gender Information Value Date Recorded Sex Assigned at Not on file Legal Sex Female 9:50 AM SAMPLER RADIOACTIVE WASTE Gender Identity Not on file Sexual Orientation Not on file Occupation Industry Job Start Date Job End Date unemployed Not on file Not on file Not on file documented as of this encounter Plan of Treatment Not on file documented as of this encounter Procedures Procedure Name Priority Date/Time Associated Diagnosis Comments DISCHARGE LABORATORY CUMULATIVE REPORT 05/19/2017 12:00 AM SAMPLER RADIOACTIVE WASTE documented in this encounter Results * DISCHARGE LABORATORY CUMULATIVE REPORT (05/19/2017 12:00 AM SAMPLER RADIOACTIVE WASTE) Narrative 05/19/2017 12:00 AM SAMPLER RADIOACTIVE WASTE Ordered by an unspecified provider. Historical Provider LAB BLOOD ORDERABLES Maura l Result documented in this encounter Visit Diagnoses Not on filedocumented in this encounter Care Teams Respite Provider Relationship Specialty Start Date End Date Lela Gregg, JIG OPERATOR PCP - General Family Medicine 05/19/17 07/21/19 No, Physician PCP - General 07/22/19 documented as of this encounter
[2024-07-24 12:19] VITALS: BP 107/70; PULSE 86; RESP 16; TEMP 37.1; O2SAT 99
[2024-07-24 12:25] LABS: BEDSIDEPREGUCG Negative (Negative)
[2024-07-24] MEDS: LACTATED RINGERS 1,000 ML 30 ML IV CONT (12:30)
--- NOTE | 2024-07-24 13:10 | P.PNAN_ITS ---
Anes - Initial Pre Proc Eval Procedure: Operation Date: 07/24/24 13:30 Proposed Procedures p Loop Electrical Excision Procedure - Charlie Hernandez MD Date/Time: 07/24/24 13:10 Surgeon: Charlie Hernandez MD Pre Op Diagnosis: Cervical Dysplasia Patient Data Age: 28 Gender: F Height: 1.75 m Weight: 75.2 kg Last Vital Signs Temp 98.7 F 07/24/24 12:19 Pulse 86 07/24/24 12:19 Resp 16 07/24/24 12:19 BP 107/70 07/24/24 12:19 Pulse Ox 99 07/24/24 12:19 O2 Del Method Room Air 07/24/24 12:19 Allergies Allergy/AdvReac Type Severity Reaction Status Date / Time pecan nut Allergy Severe Difficulty Verified 07/24/24 12:18 Breathing Penicillins Allergy Severe Dyspnea / Verified 07/24/24 12:18 SOB vancomycin Allergy Mild Itching Verified 07/24/24 12:18 Home Medications ?Medication ?Instructions ?Recorded ?Confirmed ?Type No Home Medications 07/04/24 07/10/24 History Laboratory Tests 07/24/24 12:19 POC Urine HCG, Qual Negative (Negative) HCG: negative Patient hx anesthesia problems: none Family hx anesthesia problems: none Results Review: All pre-operative results and documents have been reviewed as part of the pre- operative evaluation. [facility] Past Medical History Medical History Abnormal Pap smear of cervix Vaginal discharge Anxiety Asthma Surgical History Surgical History History of tubal ligation Family History Family History Father Bone cancer Skin cancer (melanoma) Heart murmur Mother Multiple sclerosis Diabetes mellitus Social History Social History Years smoked: 4 Smoking status: Former smoker Tobacco type: e-cigarettes/vaping Second hand tobacco smoke exposure: No Alcohol intake: former Substance use: former Substance use type: does not use Do You Feel Safe in your Home?: Yes Lack of Transportation: No Lack of Food: Never True Current Housing: I Have Housing Concerned About Future Housing: No Difficulty Paying Gas/Electric Bills: Decline to Answer Difficulty Paying for Meds: No Education: High School Diploma/GED Difficulty w/ Childcare or Family Care: No Living arrangements: with family Gender identity (if verbalized by the patient): Female Sexual Orientation (if Verbalized by the Patient): Bisexual Spiritual care concerns: No Anes - Eval Final PreProcedure Day of Procedure 07/24/24 13:10 Patient weight: normal Heart: regular rate and rhythm Lungs: clear to auscultation Airway: Mallampati scale class II Neurological: alert and oriented ASA classification: III Emergent: no Anesthetic plan: proceed Anesthesia type and monitoring: general GIVS and standard monitoring Results Review: All pre-operative results and documents have been reviewed as part of the pre- operative evaluation. Informed Consent: The patient's anesthetic plan and its attendant risks and benefits were discussed with the patient/family/POA. Questions were solicited and answers provided to the satisfaction of the patient/family/POA.
--- NOTE | 2024-07-24 13:59 | WPDHPUPDATE1 ---
History and Physical Update Update Date/Time: 07/24/24 13:59 History and Physical has been reviewed, including an updated exam of the patient. There are NO changes in the patient's condition. Risks, benefits, and alternatives have been discussed and questions answered. Patient agrees to proceed with procedure.
--- NOTE | 2024-07-24 14:58 | W.PM.PROC2 ---
Procedure Note - Detailed Date of Procedure 07/24/24 Pre-op Diagnosis Cervical Dysplasia Post-op Diagnosis Same Procedure Performed LEEP Surgeon Charlie Hernandez MD Anesthesia General Indications CIN2 Findings grossly normal appearing cervix. Nabothian cyst noted Description of Procedure After adequate anesthesia was established, the patient was placed in dorsal lithotomy position in yellow fin stirrups. Insulated speculum was placed to visualize the cervix. Acetic acid solution was then applied with good definition of the transformation zone. A 25 mm loop was used to excise the transformation zone. A total of two passes were made. A single stitch was placed a 12 o'clock on the anterior cervical specimen. Two interrupted sutures were placed at 6 o'clock of the posterior cervix portion. Hemostasis was obtained with ball cautery. Power settings cut 35 bo, coagulation 35 bo. Patient tolerated the procedure well. All sponge and instrument counts were correct. The patient was transferred to PACU without complications. Estimated Blood Loss 5 Drains No Packing No Pathology Yes (endocervical curettage, cervical biopsy) Complications No immediate complications Condition Stable Disposition PACU [facility] Billing Surgery - Charge Forward: Surgery Billing
[2024-07-24 15:03] VITALS: BP 103/69; PULSE 78; RESP 14; O2SAT 100
[2024-07-24 15:30] VITALS: BP 102/68; PULSE 74; RESP 16; O2SAT 100
[2024-07-24] MEDS: oxyCODONE HCL (*CRX) 5 MG TAB IR PO (15:55)
[2024-07-24 15:58] VITALS: BP 105/73; PULSE 71; RESP 17
[2024-07-24 16:30] VITALS: BP 101/67; PULSE 72; RESP 16
[2024-07-24 17:00] VITALS: BP 113/67; PULSE 70; RESP 16; O2SAT 100
--- NOTE | 2024-07-24 17:10 | SUR.PHASEII ---
1600- Pt is awaiting ride from [facility] to discharge home
== END 2024-07-24 17:22 | disposition home or self-care (01) ==
PROVIDERS: Visit Provider Student in an Organized Health Care Education/Training Program
PROC: 0UBC7ZZ Excision of Cervix, Via Natural or Artificial Opening (ICD-10-PCS; CPT 57522; principal; 2024-07-24 13:30)
DX: N87.1 Moderate cervical dysplasia (principal); N88.8 Other specified noninflammatory disorders of cervix uteri; Z87.891 Personal history of nicotine dependence
CPT/HCPCS: 57522; 88307; A9270; J2003; J2004; J2250; J2704; J3010; J7120